=== PATIENT | male | born 1950 | race Caucasian/White ===

== ENCOUNTER → 2017-09-01 15:50 | Outpatient (CLI) | payer MEDICARE, SELFPAY ==
[2017-09-01 17:30] LABS: Absolute Lymphocyte Count 2.11 X10^3/ul (0.83-4.51); Absolute Neutrophil Count 7.4 X10^3/uL (2.0-7.7); Basophil# 0.02 X10^3/uL; Basophil% 0.2 % (0-1); Eosinophil# 0.08 X10^3/uL; Eosinophils% 0.8 % (0-5); Hemoglobin 14.8 g/dl (13.0-16.5); Lymphocyte # 2.11 X10^3/ul (4.0); Lymphocyte % 20.2 % (19-41); Mean Corp Hgb Conc 33.6 g/gl (32-36); Mean Corpuscular Hgb 30.8 pg (27.0-32.0); Mean Corpuscular Volume 91.7 fL (80-94); Mean Platelet Vol. 10.3 fl (6.2-12.0); Monocyte# 0.88 X10^3/uL; Monocyte% 8.4 % (0-10); Neutrophil # 7.36 X10^3/uL (2.7-7.7); Neutrophil % 70.2 % (47-70); Platelet Count 277 K/mm3 (150-450); RBC Distribution Width CV 14.8 % (11.6-14.6); RBC Distribution Width SD 48.5 fl (35.1-43.9); White Blood Count 10.5 K/mm3 (4.4-11.0)
[2017-09-01 17:44] LABS: POSITIVE COUNT NO; POSITIVE DIFFERENTIAL NO; POSITIVE MORPHOLOGY NO
[2017-09-01 17:47] LABS: ALB/GLOB Ratio 1.2 RATIO (0.9-2.4); AST(SGOT) 18 U/L (15-37); Alanine Aminotransfer ALT/SGPT 26 U/L (16-61); Albumin, Serum 3.8 g/dL (3.2-5.0); Alkaline Phosphatase 68 U/L (45-117); Anion Gap 8 (5-15); BUN 14 mg/dL (7-18); Calcium,Total 8.9 mg/dL (8.5-10.1); Chloride 105 mmol/L (98-107); EST Glomerular Filtration Rate 80 mL/min (>60); Est Glom Filt Rate - Afr Amer 97 mL/min (>60); Globulin 3.3 g/dL (2.2-4.2); Glucose 80 mg/dL (74-106); Potassium 4.6 mmol/L (3.5-5.1); Protein, Total 7.1 g/dL (6.4-8.2); Sodium Level 140 mmol/L (136-145); Thyroid Stim Hormone (TSH) 1.69 uIU/mL (0.358-3.74); Vitamin D,25 Hydroxy 22.7 ng/mL (29.95-100.01)
== END ==
PROVIDERS: Family Provider Family Medicine Geriatric Medicine; PCP Family Medicine Geriatric Medicine; Visit Provider Family Medicine Geriatric Medicine
DX: E55.9 Vitamin D deficiency, unspecified (principal); R53.83 Other fatigue
CPT/HCPCS: 36415; 80053; 82306; 84443; 85025

== ENCOUNTER → 2018-03-09 16:36 | Outpatient (CLI) | payer MEDICARE, SELFPAY ==
[2018-03-09 17:41] LABS: Absolute Lymphocyte Count 1.77 X10^3/ul (0.83-4.51); Absolute Neutrophil Count 5.1 X10^3/uL (2.0-7.7); Basophil# 0.02 X10^3/uL; Basophil% 0.3 % (0-1); Eosinophil# 0.13 X10^3/uL; Eosinophils% 1.7 % (0-5); Hematocrit 44.7 % (40-54); Lymphocyte # 1.77 X10^3/ul (4.0); Lymphocyte % 22.7 % (19-41); Mean Corp Hgb Conc 33.6 g/gl (32-36); Mean Corpuscular Hgb 30.5 pg (27.0-32.0); Mean Corpuscular Volume 90.9 fL (80-94); Mean Platelet Vol. 10.9 fl (6.2-12.0); Monocyte# 0.71 X10^3/uL; Monocyte% 9.1 % (0-10); Neutrophil # 5.14 X10^3/uL (2.7-7.7); Neutrophil % 65.9 % (47-70); Platelet Count 248 K/mm3 (150-450); RBC Distribution Width CV 14.6 % (11.6-14.6); RBC Distribution Width SD 47.7 fl (35.1-43.9); Red Blood Count 4.92 M/mm3 (4.6-6.2); White Blood Count 7.8 K/mm3 (4.4-11.0)
[2018-03-09 17:42] LABS: POSITIVE COUNT NO; POSITIVE DIFFERENTIAL NO; POSITIVE MORPHOLOGY NO
[2018-03-09 18:13] LABS: Vitamin D,25 Hydroxy 20.2 ng/mL (29.95-100.01)
[2018-03-09 18:25] LABS: BUN 9 mg/dL (7-18); Creatinine, Serum 0.91 mg/dL (0.70-1.30); EST Glomerular Filtration Rate 89 mL/min (>60); Glucose 77 mg/dL (74-106)
[2018-03-09 18:26] LABS: ALB/GLOB Ratio 1.2 RATIO (0.9-2.4); AST(SGOT) 9 U/L (15-37); Alanine Aminotransfer ALT/SGPT 21 U/L (16-61); Albumin, Serum 3.9 g/dL (3.2-5.0); Alkaline Phosphatase 74 U/L (45-117); Anion Gap 9 (5-15); BUN/Creat Ratio 9.9 RATIO (10-20); Chloride 105 mmol/L (98-107); Est Glom Filt Rate - Afr Amer 107 mL/min (>60); Globulin 3.3 g/dL (2.2-4.2); PSA,Total - Annual Screen 5.99 ng/mL (0.00-4.00); Protein, Total 7.2 g/dL (6.4-8.2); Sodium Level 142 mmol/L (136-145); Thyroid Stim Hormone (TSH) 1.82 uIU/mL (0.358-3.74)
[2018-03-11 14:15] LABS: Hep C Antibodies <0.1 s/co ratio (0.0-0.9)
== END ==
PROVIDERS: Family Provider Family Medicine Geriatric Medicine; PCP Family Medicine Geriatric Medicine; Visit Provider Family Medicine Geriatric Medicine
DX: E55.9 Vitamin D deficiency, unspecified (principal); R53.83 Other fatigue; Z12.5 Encounter for screening for malignant neoplasm of prostate; Z13.89 Encounter for screening for other disorder
CPT/HCPCS: 36415; 80053; 82306; 84153; 84443; 85025; 86803; G0103

== ENCOUNTER → 2018-05-11 08:00 | Outpatient (CLI) | payer MEDICARE, SELFPAY ==
--- NOTE | 2018-05-11 | IMM_PTH ---
PATIENT: SAVANNAH CROOKS LOC: [facility] U#:[id number] AGE/SX: 75/M ROOM: RE05/11/[address]: Dr. Los Santos MD : 1950 BED: DIS: SPEC #: [id number] RECD: 05/12/18 11:27 STATUS: JC REZach #: [id number] SAL: 05/11/18 00:[address]: Los Santos DEPT: IMMUNOHISTOCHEMISTRY RECD BY: Varsha Read ENTERED: 05/12/18 11:29 SP TYPE: IMMUNO OTHR DR: Dr. Luiz Celeste MD Tissues: C - PROSTATE RIGHT F - PROSTATE LEFT Procedures: 34BE12 (add) P40 (add) 34BE12 (initial) PHYSICIAN & INSTITUTION [place] [id number] SPECIMEN INFORMATION: Tissue Source: C - Right prostate, base, core biopsy, F - Left prostate, base, core biopsy Clinical Info: Elevated PSA Specimen Number: [id number] C & F CPT code: 23135, 78051 x3 METHODOLOGY: Deparaffinized sections of prefer/formalin-fixed tissue or PAP/DQ stained slides are incubated with monoclonal/polyclonal antibodies/oligonucleotide probes. Localization is made via biotin free immunoperoxidase method. Appropriate controls are performed and reacted as expected. Results on target cell population are indicated in the following table: RESULTS: ANTIBODY / CLONE RESULT Block C P40 (BC28) positive 34BE12 (34BE12) positive Block F P40 (BC28) positive 34BE12 (34BE12) positive These tests were developed and their performance characteristics determined by [facility]. They may not have been cleared or approved by the U.S. Food and Drug Administration. The FDA has determined that such clearance or approval is not necessary. INTERPRETATION: C. Right prostate, base, core biopsy: Consistent with focal high-grade prostatic intraepithelial neoplasia (HGPIN). F. Left prostate, base, core biopsy: Consistent with focal high-grade prostatic intraepithelial neoplasia (HGPIN). SJ:chong 05/12/18
--- NOTE | 2018-05-11 08:00 | PROSBIL_PTH ---
PATIENT: SAVANNAH CROOKS LOC: [facility] U#:[id number] AGE/SX: 75/M ROOM: RE05/11/[address]: Dr. Los Santos MD : 1950 BED: DIS: SPEC #: [id number] RECD: 05/11/18 14:10 STATUS: JC ADRIEL #: [id number] SAL: 05/11/18 08:[address]: Los Santos DEPT: SURGICAL PATHOLOGY RECD BY: Varsha Read ENTERED: 05/11/18 14:25 SP TYPE: PROST BX MAXI DR: Dr. Luiz Celeste MD Tissues: A - PROSTATE RIGHT B - PROSTATE RIGHT C - PROSTATE RIGHT D - PROSTATE LEFT E - PROSTATE LEFT F - PROSTATE LEFT Procedures: PROSTATE BX HEADER OPERATION: Prostate biopsy PRE-OP DIAGNOSIS: Elevated PSA TISSUE SUBMITTED: A - Right apex, B - Right mid, C - Right base, D - Left apex, E - Left mid, F - Left base MICROSCOPIC DIAGNOSIS A. Right prostate, apex, core biopsy: Prostatic tissue, negative for malignancy. B. Right prostate, mid, core biopsy: Prostatic tissue, negative for malignancy. Focal mild chronic inflammation. C. Right prostate, base, core biopsy: Focal high-grade prostatic intraepithelial neoplasia (HGPIN). Focal mild chronic inflammation. See comment. D. Left prostate, apex, core biopsy: Prostatic tissue, negative for malignancy. E. Left prostate, mid, core biopsy: Prostatic tissue, negative for malignancy. F. Left prostate, base, core biopsy: Focal high-grade prostatic intraepithelial neoplasia (HGPIN). Focal mild chronic inflammation. See comment. SJ:rg 05/12/18 COMMENT C & F. Immunohistochemistry ([id number]) supports the above diagnosis. Case has been reviewed in consultation with Dr. Rojas who concurs with the above diagnosis. IDC:AM MICROSCOPIC DESCRIPTION Slides are reviewed. GROSS DESCRIPTION A - Received is one container designated prostate, right apex. The specimen consists of three elongated fragments of light hernandez-white soft tissue each measuring 0.5 cm in length and 0.1 cm in diameter. The specimen is totally submitted in one cassette. B - Received is one container designated prostate, right mid. The specimen consists of two elongated fragments of light hernandez-white soft tissue each measuring 1.5 cm in length and 0.1 cm in diameter. The specimen is totally submitted in one cassette. C - Received is one container designated prostate, right base. The specimen consists of two elongated fragments of light heranndez-white soft tissue measuring 1 and 1.5 cm in length and 0.1 cm in diameter. The specimen is totally submitted in one cassette. D - Received is one container designated prostate, left apex. The specimen consists of two elongated fragments of light hernandez-white soft tissue each measuring 1.5 cm in length and 0.1 cm in diameter. The specimen is totally submitted in one cassette. E - Received is one container designated prostate, left mid. The specimen consists of three elongated fragments of light hernandez-white soft tissue measuring 0.5, 0.5 and 1 cm in length and 0.1 cm in diameter. The specimen is totally submitted in one cassette. F - Received is one container designated prostate, left base. The specimen consists of two elongated fragments of light hernandez-white soft tissue measuring 1 and 1.5 cm in length and 0.1 cm in diameter. The specimen is totally submitted in one cassette. / SJ:rg 05/11/18 TC:5 CPT: G0146
== END ==
PROVIDERS: Family Provider Family Medicine Geriatric Medicine; PCP Family Medicine Geriatric Medicine; Referring Provider Urology; Visit Provider Urology
DX: N42.31 Prostatic intraepithelial neoplasia (principal)
CPT/HCPCS: 88305; 88341; 88342; G0416

== ENCOUNTER → 2018-06-29 15:27 | Outpatient (CLI) | payer MEDICARE, SELFPAY ==
--- NOTE | 2018-06-29 15:32 | MRI_ITS ---
STUDY: MR PELVIS WITH T WITHOUT CONTRAST REASON FOR EXAM: Male, 68 years old. Recent biopsy proven prostate cancer. TECHNIQUE: Standardized fat and water weighted pulse sequences were obtained in all 3 orthogonal planes, pre-and post contrast administration. 10 ml of Gadavist contrast material was administered intravenously for the contrast portion of the examination. COMPARISON: Prior comparable comparison studies are not available for review at this time. FINDINGS: There is invasion of the urinary bladder base by a lobular enlarged prostate. The urinary bladder otherwise has a grossly normal appearance. There is no obvious dilated bowel, or ascites. There are multiple colonic diverticula of the sigmoid colon consistent with chronic diverticulosis. There is no pelvic fluid. The prostate is enlarged and lobular contour. There is restricted diffusion within the left paramedian caudal prostate presumably related to the known malignancy. This is best seen on axial images #15-21 of series #8 and #800. The prostate has a lobular contour. Estimated size of the prostate is approximately 8.3 x 4.7 x 4.5 cm in size. The seminal vesicles are within normal limits in appearance. Normal visualized pelvic arteries. Normal osseous structures. Normal abdominal wall. MRI/Pelvis W/WO Contrast IMPRESSION: 1. MR findings confirming the presence of a prostatic neoplasm, as described. 2. Apparent encroachment upon the urinary bladder base. 3. General enlargement of the prostate with multiple nodules. Electronically Signed: Aracely Ya MD at 11:55 EST , Service support ,
[2018-06-29 15:56] LABS: CREATININE FINGERSTICK 1.1 mg/dL (0.70-1.30); EGFR FINGERSTICK > 60.0000 mL/min (>60)
== END ==
PROVIDERS: Family Provider Family Medicine Geriatric Medicine; PCP Family Medicine Geriatric Medicine; Referring Provider Urology; Visit Provider Urology
DX: R97.20 Elevated prostate specific antigen [PSA] (principal)
CPT/HCPCS: 72197; A9585

== ENCOUNTER → 2018-07-28 16:38 | Outpatient (CLI) | payer MEDICARE, SELFPAY ==
--- NOTE | 2018-07-28 08:00 | PROSBIL_PTH ---
PATIENT: SAVANNAH CROOKS LOC: [facility] U#:[id number] AGE/SX: 75/M ROOM: RE07/28/[address]: Dr. Los Snatos MD : 1950 BED: DIS: SPEC #: [id number] RECD: 07/28/18 16:31 STATUS: JC ADRIEL #: [id number] SAL: 07/28/18 08:[address]: Los Santos DEPT: SURGICAL PATHOLOGY RECD BY: Honorio Weir ENTERED: 07/29/18 08:14 SP TYPE: PROST BX MAXI DR: Dr. Luiz Celeste MD Tissues: A - PROSTATE RIGHT B - PROSTATE RIGHT C - PROSTATE RIGHT D - PROSTATE LEFT E - PROSTATE LEFT F - PROSTATE LEFT Procedures: PROSTATE BX HEADER OPERATION: Prostate biopsy PRE-OP DIAGNOSIS: Elevated PSA TISSUE SUBMITTED: A - Right apex, B - Right mid, C - Right base, D - Left apex, E - Left mid, F - Left base MICROSCOPIC DIAGNOSIS A. Right prostate, apex, core biopsy: Prostatic tissue, negative for malignancy. B. Right prostate, mid, core biopsy: Prostatic tissue, negative for malignancy. C. Right prostate, base, core biopsy: Focal minimal high-grade prostatic intraepithelial neoplasia (HGPIN). D. Left prostate, apex, core biopsy: Prostatic tissue, negative for malignancy. E. Left prostate, mid, core biopsy: Prostatic tissue, negative for malignancy. F. Left prostate, base, core biopsy: Prostatic tissue, negative for malignancy. SJ:chong 07/30/18 COMMENT Please make reference to previous specimen ([id number]) right prostate, apex, right prostate, mid and left prostate, apex and left prostate, mid with diagnosis of prostatic tissue, negative for malignancy and right prostate, base and left prostate, base with diagnosis of focal high-grade prostatic intraepithelial neoplasia (HGPIN). MICROSCOPIC DESCRIPTION Slides are reviewed. GROSS DESCRIPTION A - Received is one container designated prostate, right apex. The specimen consists of two elongated fragments of light hernandez-white soft tissue each measuring 2 cm in length and 0.1 cm in diameter. The specimen is totally submitted in one cassette. B - Received is one container designated prostate, right mid. The specimen consists of two elongated fragments of light hernandez-white soft tissue each measuring 2 cm in length and 0.1 cm in diameter. The specimen is totally submitted in one cassette. C - Received is one container designated prostate, right base. The specimen consists of two elongated fragments of light hernandez-white soft tissue each measuring 1.5 cm in length and 0.1 cm in diameter. The specimen is totally submitted in one cassette. D - Received is one container designated prostate, left apex. The specimen consists of two elongated fragments of light hernandez-white soft tissue each measuring 1.5 cm in length and 0.1 cm in diameter. The specimen is totally submitted in one cassette. E - Received is one container designated prostate, left mid. The specimen consists of two elongated fragments of light hernandez-white soft tissue each measuring 1 cm in length and 0.1 cm in diameter. The specimen is totally submitted in one cassette. F - Received is one container designated prostate, left base. The specimen consists of two elongated fragments of light hernandez-white soft tissue each measuring 1 cm in length and 0.1 cm in diameter. The specimen is totally submitted in one cassette. / AM:chong 07/29/18 TC:5 CPT: G0146
== END ==
PROVIDERS: Family Provider Family Medicine Geriatric Medicine; PCP Family Medicine Geriatric Medicine; Referring Provider Urology; Visit Provider Urology
DX: N42.31 Prostatic intraepithelial neoplasia (principal)
CPT/HCPCS: 88305; G0416

== ENCOUNTER → 2019-05-11 16:24 | Outpatient (CLI) | payer MEDICARE, SELFPAY ==
[2019-05-11 18:09] LABS: PSA,Total- Diagnostic 5.94 ng/mL (0.0-4.0)
== END ==
PROVIDERS: Family Provider Family Medicine Geriatric Medicine; PCP Family Medicine Geriatric Medicine; Referring Provider Urology; Visit Provider Urology
DX: R97.20 Elevated prostate specific antigen [PSA] (principal)
CPT/HCPCS: 36415; 84153

== ENCOUNTER → 2020-09-19 14:36 | Outpatient (CLI) | payer MEDICARE, SELFPAY ==
[2020-09-19 15:05] LABS: Absolute Lymphocyte Count 1.94 X10^3/uL (0.83-4.51); Absolute Neutrophil Count 5.5 X10^3/uL (2.0-7.7); Basophil# 0.03 X10^3/uL; Basophil% 0.4 % (0-1); Eosinophil# 0.06 X10^3/uL; Eosinophils% 0.7 % (0-5); Hematocrit 45.4 % (40-54); Hemoglobin 14.9 g/dL (13.0-16.5); Lymphocyte # 1.94 X10^3/ul (4.0); Lymphocyte % 23.6 % (19-41); Mean Corp Hgb Conc 32.8 g/dL (32-36); Mean Corpuscular Hgb 29.7 pg (27.0-32.0); Mean Corpuscular Volume 90.6 fL (80-94); Mean Platelet Vol. 9.9 fl (6.2-12.0); Monocyte% 8.5 % (0-10); NRBC Flagged by Analyzer 0 % (0-5); Neutrophil # 5.47 X10^3/uL (2.7-7.7); Neutrophil % 66.6 % (47-70); Platelet Count 270 K/mm3 (150-450); RBC Distribution Width SD 46.7 fl (35.1-43.9); Red Blood Count 5.01 M/mm3 (4.6-6.2); White Blood Count 8.2 K/mm3 (4.4-11.0)
[2020-09-19 15:21] LABS: Vitamin D,25 Hydroxy 26.2 ng/mL
[2020-09-19 15:24] LABS: ALB/GLOB Ratio 1.2 RATIO (0.9-2.4); AST(SGOT) 13 U/L (15-37); Alanine Aminotransfer ALT/SGPT 21 U/L (16-61); Albumin, Serum 3.9 g/dL (3.2-5.0); Alkaline Phosphatase 71 U/L (45-117); Anion Gap 5 (5-15); BUN 12 mg/dL (7-18); BUN/Creat Ratio 13.1 RATIO (10-20); Calcium,Total 9.1 mg/dL (8.5-10.1); Chloride 106 mmol/L (98-107); Creatinine, Serum 0.92 mg/dL (0.70-1.30); EST Glomerular Filtration Rate 87 mL/min (>60); Est Glom Filt Rate - Afr Amer 105 mL/min (>60); Globulin 3.2 g/dL (2.2-4.2); Glucose 80 mg/dL (74-106); PSA,Total - Annual Screen 8.38 ng/mL (0.00-4.00); Potassium 4.2 mmol/L (3.5-5.1); Protein, Total 7.1 g/dL (6.4-8.2); Sodium Level 139 mmol/L (136-145); Thyroid Stim Hormone (TSH) 1.67 uIU/mL (0.358-3.74)
== END ==
PROVIDERS: PCP Family Medicine Geriatric Medicine; Visit Provider Family Medicine Geriatric Medicine
DX: E55.9 Vitamin D deficiency, unspecified (principal); R53.83 Other fatigue; Z12.5 Encounter for screening for malignant neoplasm of prostate
CPT/HCPCS: 36415; 80053; 82306; 84153; 84443; 85025; G0103

== ENCOUNTER → 2020-09-29 07:52 | Outpatient (CLI) | payer MEDICARE, SELFPAY ==
--- NOTE | 2020-09-29 08:03 | CT_ITS ---
STUDY: CT CHEST WITHOUT CONTRAST REASON FOR EXAM: Male, 70 years old. SOLITARY PULMONARY NODULE RADIATION DOSAGE (If Supplied By Facility): CTDIvol = ( 14.89 ) mGy, DLP = ( 599.22 ) mGycm TECHNIQUE: Transaxial imaging was performed without the administration of intravenous contrast material. Multiplanar coronal and sagittal images were reformatted. Individualized dose optimization techniques were used for this CT. COMPARISON: Comparison is made with prior study dated 06/18/2017. FINDINGS: Small benign-appearing bilateral axillary lymph nodes. Stable calcified granuloma in the medial aspect of the right upper lobe medially. There is no demonstrated pleural abnormality. There are calcifications of the coronary arteries. Normal mediastinum. Normal hilar regions. Normal unenhanced pulmonary arteries. Normal aorta arch and descending thoracic aorta. There are multi-level degenerative changes of the thoracic spine. There is no demonstrated abnormality of the visualized upper abdomen. CT/Chest without Contrast IMPRESSION: Stable examination. Electronically Signed: Ebenezer Tran MD at 10:02 EDT , Service support ,
== END ==
PROVIDERS: PCP Family Medicine Geriatric Medicine; Referring Provider Family Medicine Geriatric Medicine; Visit Provider Family Medicine Geriatric Medicine
DX: R91.1 Solitary pulmonary nodule (principal)
CPT/HCPCS: 71250

== ENCOUNTER → 2021-03-20 13:58 | Outpatient (CLI) | payer MEDICARE, SELFPAY ==
[2021-03-20 15:40] LABS: Absolute Lymphocyte Count 1.88 X10^3/uL (0.83-4.51); Absolute Neutrophil Count 4.9 X10^3/uL (2.0-7.7); Basophil# 0.04 X10^3/uL; Basophil% 0.5 % (0-1); Eosinophil# 0.17 X10^3/uL; Eosinophils% 2.2 % (0-5); Hematocrit 42.5 % (40-54); Hemoglobin 14.3 g/dL (13.0-16.5); Lymphocyte # 1.88 X10^3/ul (0.83-4.51); Lymphocyte % 24.8 % (19-41); Mean Corp Hgb Conc 33.6 g/dL (32-36); Mean Corpuscular Hgb 30.3 pg (27.0-32.0); Mean Platelet Vol. 9.8 fl (6.2-12.0); Monocyte% 7.9 % (0-10); NRBC Flagged by Analyzer 0 % (0-5); Neutrophil # 4.87 X10^3/uL (2.7-7.7); Neutrophil % 64.2 % (47-70); Platelet Count 258 K/mm3 (150-450); RBC Distribution Width CV 13.8 % (11.6-14.6); Red Blood Count 4.72 M/mm3 (4.6-6.2); White Blood Count 7.6 K/mm3 (4.4-11.0)
[2021-03-20 15:56] LABS: Vitamin D,25 Hydroxy 32.4 ng/mL
[2021-03-20 16:10] LABS: ALB/GLOB Ratio 1.2 RATIO (0.9-2.4); AST(SGOT) 14 U/L (15-37); Alanine Aminotransfer ALT/SGPT 20 U/L (16-61); Albumin, Serum 3.7 g/dL (3.2-5.0); Alkaline Phosphatase 70 U/L (45-117); Anion Gap 7 (5-15); BUN 10 mg/dL (7-18); BUN/Creat Ratio 10.1 RATIO (10-20); Chloride 107 mmol/L (98-107); Creatinine, Serum 0.99 mg/dL (0.70-1.30); EST Glomerular Filtration Rate 80 mL/min (>60); Est Glom Filt Rate - Afr Amer 97 mL/min (>60); Globulin 3.2 g/dL (2.2-4.2); Glucose 87 mg/dL (74-106); Protein, Total 6.9 g/dL (6.4-8.2); Sodium Level 140 mmol/L (136-145); Thyroid Stim Hormone (TSH) 1.49 uIU/mL (0.358-3.74)
== END ==
PROVIDERS: PCP Family Medicine Geriatric Medicine; Visit Provider Family Medicine Geriatric Medicine
DX: E55.9 Vitamin D deficiency, unspecified (principal); R53.83 Other fatigue
CPT/HCPCS: 36415; 80053; 82306; 84443; 85025

== ENCOUNTER 2021-09-24 15:24 | Outpatient (CLI) | payer MEDICARE, SELFPAY ==
[2021-09-24 17:08] LABS: Absolute Lymphocyte Count 1.78 X10^3/uL (0.83-4.51); Absolute Neutrophil Count 6.6 X10^3/uL (2.0-7.7); Basophil# 0.05 X10^3/uL; Basophil% 0.5 % (0-1); Eosinophil# 0.18 X10^3/uL; Eosinophils% 1.9 % (0-5); Hematocrit 42.2 % (40-54); Hemoglobin 13.9 g/dL (13.0-16.5); Lymphocyte # 1.78 X10^3/ul (0.83-4.51); Mean Corp Hgb Conc 32.9 g/dL (32-36); Mean Corpuscular Hgb 29.9 pg (27.0-32.0); Mean Corpuscular Volume 90.8 fL (80-94); Mean Platelet Vol. 10.2 fl (6.2-12.0); Monocyte% 8.5 % (0-10); NRBC Flagged by Analyzer 0 % (0-5); Neutrophil # 6.55 X10^3/uL (2.7-7.7); Neutrophil % 69.8 % (47-70); Platelet Count 278 K/mm3 (150-450); RBC Distribution Width SD 46.7 fl (35.1-43.9); Red Blood Count 4.65 M/mm3 (4.6-6.2); White Blood Count 9.4 K/mm3 (4.4-11.0)
[2021-09-24 17:22] LABS: Vitamin D,25 Hydroxy 29.2 ng/mL
[2021-09-24 17:34] LABS: ALB/GLOB Ratio 1.3 RATIO (0.9-2.4); AST(SGOT) 14 U/L (15-37); Alanine Aminotransfer ALT/SGPT 25 U/L (16-61); Albumin, Serum 3.8 g/dL (3.2-5.0); Alkaline Phosphatase 63 U/L (45-117); Anion Gap 5 (5-15); BUN 9 mg/dL (7-18); BUN/Creat Ratio 9.2 RATIO (10-20); Calcium,Total 8.7 mg/dL (8.5-10.1); Chloride 107 mmol/L (98-107); Creatinine, Serum 0.98 mg/dL (0.70-1.30); EST Glomerular Filtration Rate 81 mL/min (>60); Est Glom Filt Rate - Afr Amer 98 mL/min (>60); Globulin 2.9 g/dL (2.2-4.2); Glucose 75 mg/dL (74-106); PSA,Total - Annual Screen 7.31 ng/mL (0.00-4.00); Potassium 3.9 mmol/L (3.5-5.1); Protein, Total 6.7 g/dL (6.4-8.2); Sodium Level 140 mmol/L (136-145); Thyroid Stim Hormone (TSH) 2.41 uIU/mL (0.358-3.74)
== END 2021-09-24 23:59 | disposition home or self-care (01) ==
LOC: POLAB3 15:27
PROVIDERS: PCP Family Medicine Geriatric Medicine; Visit Provider Family Medicine Geriatric Medicine
DX: R53.83 Other fatigue (principal); E55.9 Vitamin D deficiency, unspecified; Z12.5 Encounter for screening for malignant neoplasm of prostate
CPT/HCPCS: 36415; 80053; 82306; 84153; 84443; 85025; G0103

== ENCOUNTER → 2022-03-26 | Outpatient (CLI) | payer MEDICARE, SELFPAY ==
[2022-03-26 16:59] LABS: Absolute Lymphocyte Count 1.61 X10^3/uL (0.83-4.51); Absolute Neutrophil Count 8.1 X10^3/uL (2.0-7.7); Basophil# 0.03 X10^3/uL; Basophil% 0.3 % (0-1); Eosinophil# 0.06 X10^3/uL; Eosinophils% 0.5 % (0-5); Hematocrit 42.9 % (40-54); Hemoglobin 14.4 g/dL (13.0-16.5); Lymphocyte # 1.61 X10^3/ul (0.83-4.51); Lymphocyte % 14.7 % (19-41); Mean Corp Hgb Conc 33.6 g/dL (32-36); Mean Corpuscular Hgb 30.3 pg (27.0-32.0); Mean Corpuscular Volume 90.3 fL (80-94); Mean Platelet Vol. 10.8 fl (6.2-12.0); Monocyte# 1.09 X10^3/uL; NRBC Flagged by Analyzer 0 % (0-5); Neutrophil % 74.1 % (47-70); Platelet Count 232 K/mm3 (150-450); RBC Distribution Width CV 14.1 % (11.6-14.6); RBC Distribution Width SD 46.7 fl (35.1-43.9); Red Blood Count 4.75 M/mm3 (4.6-6.2); White Blood Count 10.9 K/mm3 (4.4-11.0)
[2022-03-26 17:28] LABS: Vitamin D,25 Hydroxy 34.6 ng/mL
[2022-03-26 17:33] LABS: ALB/GLOB Ratio 1.1 RATIO (0.9-2.4); AST(SGOT) 12 U/L (15-37); Alanine Aminotransfer ALT/SGPT 26 U/L (16-61); Albumin, Serum 3.6 g/dL (3.2-5.0); Alkaline Phosphatase 89 U/L (45-117); Anion Gap 3 (5-15); BUN 11 mg/dL (7-18); BUN/Creat Ratio 11.6 RATIO (10-20); Chloride 107 mmol/L (98-107); Creatinine, Serum 0.95 mg/dL (0.70-1.30); EST Glomerular Filtration Rate 83 mL/min (>60); Est Glom Filt Rate - Afr Amer 101 mL/min (>60); Globulin 3.4 g/dL (2.2-4.2); Glucose 85 mg/dL (74-106); Potassium 4.2 mmol/L (3.5-5.1); Sodium Level 138 mmol/L (136-145); Thyroid Stim Hormone (TSH) 1.48 uIU/mL (0.358-3.74)
== END | disposition home or self-care (01) ==
LOC: POLAB3 09:05
PROVIDERS: PCP Family Medicine Geriatric Medicine; Visit Provider Family Medicine Geriatric Medicine
DX: E55.9 Vitamin D deficiency, unspecified (principal); R53.83 Other fatigue
CPT/HCPCS: 36415; 80053; 82306; 84443; 85025

== ENCOUNTER → 2022-10-01 | Outpatient (CLI) | payer MEDICARE, SELFPAY ==
[2022-10-01 17:35] LABS: Absolute Lymphocyte Count 1.56 X10^3/uL (0.83-4.51); Absolute Neutrophil Count 5.5 X10^3/uL (2.0-7.7); Basophil# 0.03 X10^3/uL; Basophil% 0.4 % (0-1); Eosinophil# 0.07 X10^3/uL; Eosinophils% 0.9 % (0-5); Hematocrit 43.8 % (40-54); Hemoglobin 14.8 g/dL (13.0-16.5); Lymphocyte # 1.56 X10^3/ul (0.83-4.51); Lymphocyte % 20.2 % (19-41); Mean Corp Hgb Conc 33.8 g/dL (32-36); Mean Corpuscular Hgb 30.5 pg (27.0-32.0); Mean Corpuscular Volume 90.3 fL (80-94); Mean Platelet Vol. 10.6 fl (6.2-12.0); Monocyte# 0.59 X10^3/uL; Monocyte% 7.6 % (0-10); NRBC Flagged by Analyzer 0 % (0-5); Neutrophil # 5.47 X10^3/uL (2.7-7.7); Neutrophil % 70.6 % (47-70); Platelet Count 221 K/mm3 (150-450); RBC Distribution Width CV 13.8 % (11.6-14.6); RBC Distribution Width SD 46.1 fl (35.1-43.9); Red Blood Count 4.85 M/mm3 (4.6-6.2); White Blood Count 7.7 K/mm3 (4.4-11.0)
[2022-10-01 17:52] LABS: Vitamin D,25 Hydroxy 40.1 ng/mL
[2022-10-01 18:04] LABS: ALB/GLOB Ratio 1.3 RATIO (0.9-2.4); AST(SGOT) 15 U/L (15-37); Alanine Aminotransfer ALT/SGPT 22 U/L (16-61); Albumin, Serum 3.9 g/dL (3.2-5.0); Alkaline Phosphatase 73 U/L (45-117); Anion Gap 5 (5-15); BUN 10 mg/dL (7-18); Chloride 108 mmol/L (98-107); Creatinine, Serum 0.91 mg/dL (0.70-1.30); EST Glomerular Filtration Rate 88 mL/min (>60); Est Glom Filt Rate - Afr Amer 106 mL/min (>60); Globulin 3.1 g/dL (2.2-4.2); Glucose 79 mg/dL (74-106); Potassium 3.9 mmol/L (3.5-5.1); Sodium Level 139 mmol/L (136-145); Thyroid Stim Hormone (TSH) 2.14 uIU/mL (0.358-3.74)
== END | disposition home or self-care (01) ==
LOC: POLAB3 11:13
PROVIDERS: PCP Family Medicine Geriatric Medicine; Visit Provider Family Medicine Geriatric Medicine
DX: E55.9 Vitamin D deficiency, unspecified (principal); R53.83 Other fatigue; Z12.5 Encounter for screening for malignant neoplasm of prostate
CPT/HCPCS: 36415; 80053; 82306; 84153; 84443; 85025; G0103

== ENCOUNTER → 2022-11-08 | Outpatient (CLI) | payer MEDICARE, SELFPAY ==
--- NOTE | 2022-11-08 12:40 | MRI_ITS ---
ACR Level 3 findings have been noted. An addendum which confirms receipt of the report will follow. STUDY: MR PELVIS WITH AND WITHOUT CONTRAST (PROSTATE) REASON FOR EXAM: Male, 72 years old. Elevated PSA TECHNIQUE: Standardized multiparametric prostate MRI with T1, T2, DWI/ADC sequences were obtained in 3 orthogonal planes, and dynamic contrast enhancement sequences. 19 ml of Clariscan contrast material was administered intravenously for the contrast portion of the examination. COMPARISON: 06/29/2018 FINDINGS: The prostate volume measures 121.3 mm3. The contours of the prostate gland are lobulated. There is mass effect on the bladder base. The transition zone is heterogenous. PI-RADS DWI score 3 - Focal mildly hypointense on ADC and isointense/mildly hyperintense on high b-value DWI. PI-RADS T2W score 2 - A mostly encapsulated nodule OR a homogeneous circumscribed nodule without encapsulation (atypical nodule) or a homogeneous mildly hypointense area between nodules.. Contrast enhancement no early or contemporaneous enhancement; or diffuse multifocal enhancement NOT corresponding to a focal finding on T2W and/or DWI or focal ehancement responding to a lesion demonstrating features of BPH onT2WI (including features of extruded BPH in the PZ). The peripheral zone is homogenous. PI-RADS DWI score 2 - Linear/wedge shaped hypointense on ADC and/or linear/wedge shaped hyperintense on high b-value DWI. PI-RADS T2W score 2 - Linear, wedge-shaped, or diffuse mild hypointensity, usually with indistinct margin. Contrast enhancement no early or contemporaneous enhancement; or diffuse multifocal enhancement NOT corresponding to a focal finding on T2W and/or DWI or focal enhancement responding to a lesion demonstrating features of BPH onT2WI (including features of extruded BPH in the PZ). The seminal vesicles demonstrate normal margins and T2 signal pattern. No mass lesion or invasion depicted. The rectoprostatic angles are normal. Rounded, irregular mass (new) of the left side of the urinary bladder is seen just above the left UVJ on image 8 of series 8 and measures 1.7 x 1.9 cm. There is moderate enhancement following IV contrast. The vascular structures of the are normal. The visualized hollow viscus structures are normal. No bone marrow edema or mass lesion depicted. MRI/Pelvis W/WO Contrast IMPRESSION: 1. New solid, enhancing mass of the urinary bladder (near the left UVJ), very worrisome for uroepithelial neoplasm. 2. PIRADS v2.1 2019 -- 2 - Low (clinically significant cancer is unlikely). 3. Prostatomegaly with mass effect on bladder base. Electronically Signed: Trace Murphy (Brooks), at 17:57 EDT ,
[2022-11-08 13:13] LABS: CREATININE FINGERSTICK < 0.9 mg/dL (0.70-1.30); EGFR FINGERSTICK > 60.0000 mL/min (>60)
== END | disposition home or self-care (01) ==
LOC: MRI 12:25
PROVIDERS: PCP Family Medicine Geriatric Medicine; Referring Provider Urology; Visit Provider Urology
DX: R97.20 Elevated prostate specific antigen [PSA] (principal)
CPT/HCPCS: 72197; A9575

== ENCOUNTER 2022-12-11 15:29 | Observation (INO) | payer MEDICARE, SELFPAY ==
[2022-12-11] VITALS (10 sets, daily range): BP systolic 122–131; BP diastolic 64–95; PULSE 58–86; RESP 16–18; TEMP 36.1–36.6; O2SAT 96–100; BMI 29.4
--- NOTE | 2022-12-11 12:18 | EKG12_ITS ---
Test Reason : PREOP Blood Pressure : / mmHG Vent. Rate : 051 BPM Atrial Rate : 051 BPM P-R Int : 166 ms QRS Dur : 106 ms QT Int : 430 ms P-R-T Axes : 061 044 043 degrees QTc Int : 396 ms Sinus bradycardia Otherwise normal ECG No previous ECGs available Confirmed by ADRIAN REYNA, ELLIOTT ([id number]), commissioning editor ARLEN DONOHUE ([id number]) on 12/13/2022 9:28:20 AM Referred By: Los Santos Confirmed By:ELLIOTT CAMPBELL MD
[2022-12-11] MEDS: Lactated Ringers 1,000 ML 15 ML IV (12:39)
[2022-12-11] MEDS: Cefazolin 2 GM in 0.9% Normal Saline 100 ML IV (13:36)
--- NOTE | 2022-12-11 13:50 | BLB_PTH ---
PATIENT: SAVANNAH CROOKS LOC: [facility] U#:[id number] AGE/SX: 72/M ROOM: [facility] [facility] RE12/11/[address]: Dr. Los Santos MD : 1950 BED: 1 DIS: 12/12/2022 SPEC #: [id number] RECD: 12/12/22 08:50 STATUS: JC MOREL #: [id number] SAL: 12/11/22 13:[address]: Los Santos DEPT: SURGICAL PATHOLOGY RECD BY: Liz Parsons ENTERED: 12/12/22 09:45 SP TYPE: TURB OTHR DR: Dr. Luiz Celeste MD Tissues: Urinary bladder, NOS Procedures: Surgery Specimen Level IV Surgery Specimen Level V HEADER OPERATION: Transurethral resection of bladder tumor and transurethral resection of prostate PRE-OP DIAGNOSIS: Bladder tumor, benign prostatic hyperplasia TISSUE SUBMITTED: Bladder tumor and prostate tissue MICROSCOPIC DIAGNOSIS Transurethral resection of bladder tumor: Noninvasive papillary urothelial carcinoma. See cancer summary in the comment section. Transurethral resection of prostate: Benign prostatic hyperplasia, glandular and stromal type. Chronic inflammation focal minimal acute inflammation. SJ:rg 12/13/2022 COMMENT BLADDER CANCER (TUR) SUMMARY Procedure: Transurethral resection of bladder tumor (TURBT) Tumor site: Not specified Histologic type: Papillary urothelial carcinoma, noninvasive Associated epithelial lesions: None identified Histologic grade: Low grade (1/3) Tumor configuration: Papillary Muscularis propria presence: No muscularis propria (detrusor muscle) identified. Lymphvascular invasion: Not identified Tumor extension: Noninvasive papillary carcinoma. Additional pathologic findings: Prostate tissue with benign prostatic hyperplasia, glandular and stromal type and chronic inflammation and minimal acute inflammation. The specimen predominantly consists of prostate tissue with a few fragments of urothelial mucosa with bladder tumor. The above summary is in compliance with [employer] (CAP) Cancer Protocols Checklist and [place] Joint Committee on Cancer (AJCC), Staging Manual, 8th Ed. Case has been reviewed in consultation with Dr. Rojas who concurs with the above diagnosis. IDC:AM MICROSCOPIC DESCRIPTION Slides are reviewed. GROSS DESCRIPTION Received in fixative is one container labeled with the patient's name and designated prostate tissue and bladder tumor. The specimen consists of multiple irregular fragments of rubbery pink-hernandez soft tissue that in aggregate measure 6.0 x 6.0 x 0.7 and weighing 22.2 gm. Hospitality [employer] portions are submitted in ten cassettes. / AM:chong 12/12/2022 TC:0 Rest of the specimen is submitted in 9 more cassettes to . / AM [id number] CPT: 37420, 82002
[2022-12-11] MEDS: Lactated Ringers 1,000 ML 125 ML IV ×2 (15:30→20:29)
--- NOTE | 2022-12-11 15:30 | DCINST_ITS ---
Discharge Instructions Diet Discharge Diet: No restrictions and Light diet - advance as tolerated Activity Discharge Activity: Return to Normal Activity and May Not Drive Follow Up Care Please Follow Up With: Los Santos MD When: Call for appointment Test Results: Test results from this visit will be discussed in further detail at your follow- up appointment, if applicable. Discharge Plan Admission Primary Reason for Your Visit: turp and resection of bladder tumor Attending Provider: Los Santos Primary Care Provider: Luiz Celeste Chi Instructions Patient Instructions: TURP Home Recovery Discharge Orders/Prescriptions Prescriptions: Continued pravastatin 40 mg Tablet 40 mg PO QHS psyllium Packet 1 packet PO DAILY Rx Instructions: mix into at least 8 oz of water or juice before administering Referrals / Follow Up: Los Santos MD [Med Staff - Active Staff] - Luiz Ceelste Chi, MD [Primary Care Provider] - Disposition Disposition (needs filled in before D/C Order can be placed): Home, Self Care
--- NOTE | 2022-12-11 15:30 | PCM.HP.STD ---
HPI - General General Date of Service: 12/11/22 Chief Complaint: Bladder tumor and BPH with obstruction HPI Narrative SAVANNAH CROOKS, is a 72 M who presents for resection of a bladder tumor he also has a very large prostate PFS Medical History Alcohol use Bladder disease Constipation High cholesterol Loss of hearing Prostate disease Smoker Home Medications pravastatin 40 mg tablet 40 mg PO QHS 12/04/22 [History Last Taken Unknown] psyllium 1 packet PO DAILY 12/04/22 [History Last Taken Unknown] Allergy/AdvReac Type Severity Reaction Status Date / Time CARBON DIOXIDE Allergy Rash Uncoded 12/04/22 09:17 Surgical History (Updated 12/04/22 @ 09:27 by Angy Rutherford) Hx of colonoscopy Hx of left cataract extraction Hx of right cataract extraction Social History Smoking Status: Current every day smoker tobacco type: cigarettes and smokeless tobacco Vital Signs Vital Signs Vital Signs: 12/11/22 12:32 12/11/22 12:32 Temperature 97.7 F L Temperature Source Temporal Pulse Rate 58 L Respiratory Rate 18 Respiratory Pattern Normal Blood Pressure 131/72 H Blood Pressure Mean 91 Blood Pressure Source Monitor Blood Pressure Position Semi-Fowlers Blood Pressure Location Right Arm Pulse Ox 96 Oxygen Delivery Method Room Air Weight Weight: 93 kg Body Mass Index (BMI) 29.4
--- NOTE | 2022-12-11 15:31 | OP.PCM_ITS ---
Report of Operation Date of Procedure: 12/11/22 Pre-Operative Diagnosis: Bladder tumor medium size about 3.5 x 2.5 x 3 cm, BPH with obstruction with a large median lobe and obstruction Post-Operative Diagnosis: Same Surgery/Procedure Performed:: Transurethral section of prostate, and transurethral resection of bladder tumor medium Description of Surgical Findings:: Patient was taken back to the operating room at the smooth induction of general anesthesia he was placed in dorsolithotomy position. The penis testicles were prepped and draped in usual sterile fashion reviewed the preop imaging he had a tumor in the bladder that was evident on MRI he also had a very large prostate on MRI so I did not do a cystoscopy in the office since the tumor was fairly evident that there was a tumor in his bladder and he had a large tumor in his b ladder that measured about 3.5 x 2.5 x 3 cm in size. Today we will proceed with the resection. Patient was taken back to the operating room with a smooth induction of general anesthesia he was placed in dorsolithotomy position the penis testicles were prepped and draped in usual sterile fashion within the bladder I first with a 21 Wallisian rigid cystourethroscope entire length of the urethra was normal he did have a very tight meatus so I did stretch the meatus with sounds and I dilated meatus starting at [address] up to 28 Wallisian then with this I went in with a 21 Wallisian rigid cystourethroscope I went inside the prostate he had a very large obstructive prostate very large median lobe and hanging lobes in the bladder causing obstruction and then within the bladder there was a papillary tumor that was coming from the prostate on the left side close to the left ureteral orifice I switched over to the 26 Wallisian continuous-flow resectoscope and started resecting this tumor I completely resected the tumor and then also identified the left ureteral orifice and the right ureteral orifice ease were uninvolved and uninjured and then as I resected the tumor the tumor was over overlying the prostate side to resect the prostate and in doing this, and created a flap side to resect the median lobe to get rid of the flap and then as a continued resecting I decided be best off to the patient just had the entire prostate resected because a anticipated can have lots of problems urinating with the flaps that were created as we resected the tumor so I spoke to the family and and they agreed to proceed with a transurethral resection of prostate the this said to leave it to my best judgment so organ to proceed with a TURP the consent was signed with the nurse over the phone we then switched over the resectoscope and started resecting the prostate we resected the median lobes the right and left median lobes resected the floor the prostate resect the right lobe of the prostate left lobe of the prostate resected apical tissue I then switched over to the button carefully resected the tissue with the button until I had a fairly wide open channel I did a flow test had a nice flow and then looks like the sphincter was intact and then we did a flow test with a full bladder had a nice flow and then I used the button to smooth out the resection and get good hemostasis and then we placed a 22 Wallisian three-way catheter into the bladder on continuous irrigation is taken back to PACU in good condition update the family and the findings of surgery Surgeon: Los Santos Type of Anesthesia: General Drains: 22fr 3 way willams Estimated Blood Loss (mL): 20 Admit VTE Documentation VTE Present on Admission: No VTE Mechan Device Prophylaxis: SCD's VTE Pharm Prophylaxis ordered?: No
[2022-12-11] MEDS: Cefazolin 1 GM/50 ML BAG IV (22:33)
[2022-12-11] MEDS: Docusate Sodium 100 MG Capsule 200 MG PO (22:36)
[2022-12-11] MEDS: Pravastatin 40 MG Tablet PO (22:36)
[2022-12-12 02:50] VITALS: BP 109/73; PULSE 73; RESP 16; TEMP 36.7; O2SAT 96
[2022-12-12] MEDS: Cefazolin 1 GM/50 ML BAG IV (05:47)
[2022-12-12] MEDS: Lactated Ringers 1,000 ML 125 ML IV (05:48)
[2022-12-12 07:19] VITALS: O2SAT 95
--- NOTE | 2022-12-12 07:40 | PCM.PN.GU ---
Subjective Subjective heplock d/c willams and home after voids Objective Data Objective Data Vital Signs: Vital Signs Temp Pulse Resp BP Pulse Ox O2 Del Method O2 Flow Rate 98.1 F 73 16 109/73 96 Room Air 6 12/12/22 02:50 12/12/22 02:50 12/12/22 02:50 12/12/22 02:50 12/12/22 02:50 12/12/22 02:50 12/11/22 15:42 Oxygen Flow Rate (L/min) 6 Oxygen Delivery Method Room Air Weight: 93 kg Body Mass Index (BMI) 29.4 Intake & Output: Intake and Output for Last 24 Hours 12/10/22 12/11/22 12/12/22 23:59 23:59 23:59 Intake Total 1782.92 / 1782.92 1999 Output Total 4175 / 4175 3000 / 3000 Balance -2392.08 / -2392.08 -1000 / -1000
--- NOTE | 2022-12-12 09:37 | NURSING ---
0800-JUÁREZ CATHETER DC'D PER ORDERS. PT TOLERATED WELL
== END 2022-12-12 10:10 | disposition home or self-care (01) ==
LOC: SDC 16:03 → MS3 16:03
PROVIDERS: Admitting Provider Urology; PCP Family Medicine Geriatric Medicine; Referring Provider Urology; Visit Provider Urology
PROC: 0T5B8ZZ Destruction of Bladder, Via Natural or Artificial Opening Endoscopic (ICD-10-PCS; CPT 51720; principal; 2022-12-11 13:40)
DX: C67.6 Malignant neoplasm of ureteric orifice (principal); E78.00 Pure hypercholesterolemia, unspecified; F17.210 Nicotine dependence, cigarettes, uncomplicated; N40.1 Benign prostatic hyperplasia with lower urinary tract symptoms; N13.8 Other obstructive and reflux uropathy; Z79.899 Other long term (current) drug therapy; F17.220 Nicotine dependence, chewing tobacco, uncomplicated
CPT/HCPCS: 52601; 52235; 00914; 88305; 88307; 93005; 94668; 96361; 96365; 96366; 99221; J7120; G0378; J2405; J3490; J9280

== ENCOUNTER → 2023-04-04 | Outpatient (CLI) | payer MEDICARE, SELFPAY ==
[2023-04-04 11:38] LABS: Absolute Lymphocyte Count 1.42 X10^3/uL (0.83-4.51); Absolute Neutrophil Count 4.7 X10^3/uL (2.0-7.7); Basophil# 0.03 X10^3/uL; Basophil% 0.4 % (0-1); Eosinophil# 0.08 X10^3/uL; Eosinophils% 1.2 % (0-5); Hematocrit 47.9 % (40-54); Hemoglobin 15.3 g/dL (13.0-16.5); Lymphocyte # 1.42 X10^3/ul (0.83-4.51); Lymphocyte % 20.5 % (19-41); Mean Corp Hgb Conc 31.9 g/dL (32-36); Mean Corpuscular Hgb 29.8 pg (27.0-32.0); Mean Corpuscular Volume 93.2 fL (80-94); Mean Platelet Vol. 10.2 fl (6.2-12.0); Monocyte# 0.69 X10^3/uL; NRBC Flagged by Analyzer 0 % (0-5); Neutrophil # 4.67 X10^3/uL (2.7-7.7); Neutrophil % 67.5 % (47-70); Platelet Count 210 K/mm3 (150-450); RBC Distribution Width CV 14.1 % (11.6-14.6); RBC Distribution Width SD 48.5 fl (35.1-43.9); Red Blood Count 5.14 M/mm3 (4.6-6.2); White Blood Count 6.9 K/mm3 (4.4-11.0)
[2023-04-04 12:03] LABS: Vitamin D,25 Hydroxy 41.2 ng/mL
[2023-04-04 12:13] LABS: ALB/GLOB Ratio 1.1 RATIO (0.9-2.4); AST(SGOT) 13 U/L (15-37); Alanine Aminotransfer ALT/SGPT 24 U/L (16-61); Albumin, Serum 3.8 g/dL (3.2-5.0); Alkaline Phosphatase 76 U/L (45-117); Anion Gap 4 (5-15); BUN 14 mg/dL (7-18); BUN/Creat Ratio 13.3 RATIO (10-20); Calcium,Total 9.4 mg/dL (8.5-10.1); Chloride 109 mmol/L (98-107); Creatinine, Serum 1.05 mg/dL (0.70-1.30); EST Glomerular Filtration Rate 74 mL/min (>60); Est Glom Filt Rate - Afr Amer 90 mL/min (>60); Globulin 3.4 g/dL (2.2-4.2); Glucose 101 mg/dL (74-106); Protein, Total 7.2 g/dL (6.4-8.2); Sodium Level 142 mmol/L (136-145); Thyroid Stim Hormone (TSH) 1.52 uIU/mL (0.358-3.74)
== END | disposition home or self-care (01) ==
LOC: LAB 11:20
PROVIDERS: PCP Family Medicine Geriatric Medicine; Visit Provider Family Medicine Geriatric Medicine
DX: R53.83 Other fatigue (principal); E55.9 Vitamin D deficiency, unspecified
CPT/HCPCS: 36415; 80053; 82306; 84443; 85025

== ENCOUNTER → 2023-10-17 | Outpatient (CLI) | payer MEDICARE, SELFPAY ==
[2023-10-17 13:11] LABS: Absolute Lymphocyte Count 1.32 X10^3/uL (0.83-4.51); Absolute Neutrophil Count 4.1 X10^3/uL (2.0-7.7); Basophil# 0.04 X10^3/uL; Basophil% 0.7 % (0-1); Eosinophil# 0.05 X10^3/uL; Eosinophils% 0.8 % (0-5); Hematocrit 44.2 % (40-54); Hemoglobin 14.6 g/dL (13.0-16.5); Lymphocyte # 1.32 X10^3/ul (0.83-4.51); Lymphocyte % 21.7 % (19-41); Mean Corpuscular Volume 90.8 fL (80-94); Mean Platelet Vol. 10.8 fl (6.2-12.0); Monocyte# 0.56 X10^3/uL; Monocyte% 9.2 % (0-10); NRBC Flagged by Analyzer 0 % (0-5); Neutrophil % 67.3 % (47-70); Platelet Count 213 K/mm3 (150-450); RBC Distribution Width CV 13.6 % (11.6-14.6); RBC Distribution Width SD 45.7 fl (35.1-43.9); Red Blood Count 4.87 M/mm3 (4.6-6.2); White Blood Count 6.1 K/mm3 (4.4-11.0)
[2023-10-17 13:51] LABS: Vitamin D,25 Hydroxy 41.3 ng/mL
[2023-10-17 14:01] LABS: ALB/GLOB Ratio 1.2 RATIO (0.9-2.4); AST(SGOT) 15 U/L (15-37); Alanine Aminotransfer ALT/SGPT 22 U/L (16-61); Albumin, Serum 3.7 g/dL (3.2-5.0); Alkaline Phosphatase 72 U/L (45-117); Anion Gap 4 (5-15); BUN 13 mg/dL (7-18); BUN/Creat Ratio 14.9 RATIO (10-20); Calcium,Total 9.3 mg/dL (8.5-10.1); Chloride 109 mmol/L (98-107); Cholesterol 197 mg/dL (200); Creatinine, Serum 0.87 mg/dL (0.70-1.30); EST Glomerular Filtration Rate 91 mL/min (>60); Est Glom Filt Rate - Afr Amer 111 mL/min (>60); Globulin 3.1 g/dL (2.2-4.2); Glucose 91 mg/dL (74-106); High Density Lipoprotein 44 mg/dL; Potassium 4.1 mmol/L (3.5-5.1); Protein, Total 6.8 g/dL (6.4-8.2); Sodium Level 138 mmol/L (136-145); Thyroid Stim Hormone (TSH) 1.87 uIU/mL (0.358-3.74); Triglycerides 90 mg/dL; Very Low Density Lipoprotein 18 mg/dL (5-40)
== END | disposition home or self-care (01) ==
LOC: LAB 11:28
PROVIDERS: PCP Family Medicine Geriatric Medicine; Referring Provider Family Medicine Geriatric Medicine; Visit Provider Family Medicine Geriatric Medicine
DX: R53.83 Other fatigue (principal); E78.5 Hyperlipidemia, unspecified; E55.9 Vitamin D deficiency, unspecified
CPT/HCPCS: 36415; 80053; 80061; 82306; 84443; 85025

== ENCOUNTER 2024-01-16 07:31 | Day surgery (SDC) | payer MEDICARE, SELFPAY ==
[2024-01-16] MEDS: Lactated Ringers 1,000 ML 15 ML IV (07:45)
--- NOTE | 2024-01-16 07:46 | EKG12_ITS ---
Test Reason : PREOP Blood Pressure : / mmHG Vent. Rate : 058 BPM Atrial Rate : 058 BPM P-R Int : 164 ms QRS Dur : 104 ms QT Int : 404 ms P-R-T Axes : 071 045 047 degrees QTc Int : 396 ms Sinus bradycardia Possible Left atrial enlargement Borderline ECG Confirmed by ADRIAN REYNA, ELLIOTT ([id number]), magazine editor CARLOS ALBERTO NIETO ([id number]) on 01/16/2024 11:32:06 AM Referred By: Los Santos Confirmed By:ELLIOTT CAMPBELL MD
[2024-01-16 07:56] VITALS: BP 124/75; PULSE 63; RESP 16; TEMP 36.5; O2SAT 98; BMI 29.6
--- NOTE | 2024-01-16 07:57 | PRE.ANES_ITS ---
ASA Classification* ASA Classification ASA Classification: 2 Assessment & Plan Anesthesia* Anesthesia Assessment Anesthesia Assessment: Discussed sedation and/or anesthesia options, risks, benefits, and alternatives with patient/parents/legal guardian/POA. Questions invited. The patient/parents/legal guardian/POA seems to understand and agrees to proceed with anesthesia plan. Reviewed the physical assessment, medical history, allergy history and patient home medications list prior to surgery/procedure/anesthetic and documented any changes. Performed airway and anesthesia risk assessments. Anesthesia Type Anesthesia Type: General Anesthesia Focused Assessment* Airway Assessment Mouth opens: >3 cm Mallampati Score: II Focused Labs Anesthesia Preop lab: CBC WBC 6.1 K/mm3 (4.4-11.0) 10/17/23 11:39 RBC 4.87 M/mm3 (4.6-6.2) 10/17/23 11:39 Hgb 14.6 g/dL (13.0-16.5) 10/17/23 11:39 Hct 44.2 % (40-54) 10/17/23 11:39 Plt Count 213 K/mm3 (150-450) 10/17/23 11:39 CHEMISTRY Potassium 4.1 mmol/L (3.5-5.1) 10/17/23 11:39 Sodium 138 mmol/L (136-145) 10/17/23 11:39 BUN 13 mg/dL (7-18) 10/17/23 11:39 Creatinine 0.87 mg/dL (0.70-1.30) 10/17/23 11:39 Glucose 91 mg/dL (74-106) 10/17/23 11:39 TSH 1.87 uIU/mL (0.358-3.74) 10/17/23 11:39 COAG Pre-Assessment Diagnosis/Proposed Procedure Planned Operative Procedure(s): Cysto, Biopsy, Fulguration,Bladder Tumor Anesthesia History Anesthesia History - inclusion paraeducator: Anesthesia History - inclusion paraeducator Hx Hospitalization Yes: 12/11/22 TURBT 01/12/24 13:26 Any Problems With Anesthesia No 01/12/24 13:26 Cholinesterase deficiency No 01/12/24 13:26 You/Your Family Experience No 01/12/24 13:26 fever (hyperthermia) with Relationship Recent Exposure to Contagious No 12/11/22 12:32 Disease Does patient have nerve No 01/12/24 13:26 stimulator Patient instructed to have device shut off --Does patient have Pacemaker or ICD? When Was Last Pacemaker Check QUESTION #4 FULL TEXT: You/Your Family Experience fever (hyperthermia) with Anesthesia Last Oral Intake Last Oral intake: Last Oral Intake NPO since Meds taken in AM with sips of water? Meds patient instructed to take am of surgery PONV PONV - inclusion paraeducator: PONV - inclusion paraeducator Female No 01/12/24 13:26 HX of Motion Sickness Yes 01/12/24 13:26 HX of N/V After Surgery No 01/12/24 13:26 Non-Smoker No 01/12/24 13:26 Duration of Surgery greater Yes 01/12/24 13:26 than 60 minutes Number of Risk Factors 2 01/12/24 13:26 PONV Score Moderate Risk 01/12/24 13:26 Height & Weight Height & Weight: Anesthesia: Height & Weight Height 5 ft 10 in 01/15/24 07:35 Weight: 92.986 kg 01/15/24 07:35 Respiratory Assessment Respiratory Assessment - inclusion paraeducator: Respiratory Tract Infection Hx - inclusion paraeducator Hx Respiratory Tract Infection No 01/12/24 13:26 STOP Sleep Apnea STOP Sleep Apnea - inclusion paraeducator: STOP Sleep Apnea - inclusion paraeducator Hx Hypertension No 01/12/24 13:26 Hx Sleep Apnea No 01/12/24 13:26 CPAP BIPAP Do you snore loudly (louder No 01/12/24 13:26 than talking or can be heard Do you often feel tired/ No 01/12/24 13:26 fatigued/ sleepy during daytime? Has anyone observed you stop No 01/12/24 13:26 breathing during sleep? STOP Results Negative 01/12/24 13:26 QUESTION #5 FULL TEXT : Do you snore loudly (louder than talking or can be heard through closed doors)? Tobacco Use History Tobacco Use History - inclusion paraeducator: Tobacco Use History - inclusion paraeducator Tobacco Use Smoking Status Current every day smoker 01/12/24 13:26 Hx Tobacco Use Yes 01/12/24 13:26 Years Smoking Packs Smoked per Day Smoking Cessation Date was within the last 15 years Hx Smoking Cessation Date Hx Smoking Cessation Counseling Hematologic Medial History Hematologic Hx - inclusion paraeducator: Hematologic Medical Hx - summer clerk Hx of Blood Transfusion No 01/12/24 13:26 Hx of Transfusion in last 3 No 01/12/24 13:26 Months Date of Last Transfusion (if within last 3 months) Ever experience any problems No 01/12/24 13:26 with transfusion(s)? Specify any problems Hx of Preganancy in last 3 N/A 01/12/24 13:26 Months Nurse Filling Out Transfusion VCHRISTIN 01/12/24 13:26 & Questions: Date: 01/12/24 01/12/24 13:26 Time: 13:27 01/12/24 13:26 Patient unable to answer at this time (ie. confused, unrespo /Reproduction History /Reproductive History - inclusion paraeducator: /Reproductive Hx- inclusion paraeducator Hx Now No 01/12/24 13:26 Gestational Age (in weeks): EDC: Hx Hx Para Hx Section SAB No 01/12/24 13:26 Active Medications Active Medications: Current Medications Generic Name Dose Route Start Last Admin Trade Name Parth PRN Reason Stop Dose Admin Cefazolin Sodium 2 gm/ Sodium 110 mls @ 150 mls/hr 01/16/24 09:30 Chloride IV 01/16/24 10:13 PREOP ONE Lactated Ringer's 1,000 mls @ 15 mls/hr 01/16/24 07:45 IV .Q48H RAF PFSH Medical History Cancer Psoriasis Chewing tobacco dependence Loss of hearing Alcohol use Prostate disease Bladder disease High cholesterol Constipation Smoker Home Medications ?Medication ?Instructions ?Recorded ?Last Taken ?Type pravastatin 40 mg tablet 40 mg PO QHS 12/04/22 Unknown History psyllium 1 packet PO DAILY 12/04/22 Unknown History finasteride 5 mg tablet 5 mg PO DAILY 01/12/24 Unknown History Allergy/AdvReac Type Severity Reaction Status Date / Time Environmental Allergies: Allergy Rash Verified 01/12/24 13:14 Uncoded Surgical History History of transurethral resection of bladder tumor (TURBT) Hx of right cataract extraction Hx of left cataract extraction Hx of colonoscopy Social History Smoking Status: Current every day smoker tobacco type: smokeless tobacco Review of Systems (Anesthesia) ROS Narrative System reviewed and no additional complaints, except as documented.
--- NOTE | 2024-01-16 09:23 | PCM.HP.STD ---
HPI - General General Date of Service: 01/16/24 Chief Complaint: Bladder tumor HPI Narrative SAVANNAH CROOKS, is a 73 M who presents cystoscopy biopsy and cauterization of small bladder tumors PFSH Medical History Cancer Psoriasis Chewing tobacco dependence Loss of hearing Alcohol use Prostate disease Bladder disease High cholesterol Constipation Smoker Home Medications ?Medication ?Instructions ?Recorded ?Last Taken ?Type pravastatin 40 mg tablet 40 mg PO QHS 12/04/22 Unknown History psyllium 1 packet PO DAILY 12/04/22 Unknown History finasteride 5 mg tablet 5 mg PO DAILY 01/12/24 Unknown History ciprofloxacin HCl 500 mg tablet 500 mg PO BID #6 tabs 01/16/24 Unknown Rx (Cipro) ibuprofen 600 mg tablet 600 mg PO Q6H PRN fever or pain 01/16/24 Unknown Rx #20 tabs Allergy/AdvReac Type Severity Reaction Status Date / Time Environmental Allergies: Allergy Rash Verified 01/12/24 13:14 Uncoded Surgical History History of transurethral resection of bladder tumor (TURBT) Hx of right cataract extraction Hx of left cataract extraction Hx of colonoscopy Social History Smoking Status: Current every day smoker tobacco type: smokeless tobacco Vital Signs Vital Signs Vital Signs: 01/16/24 07:56 01/16/24 07:56 Temperature 97.7 F L Temperature Source Temporal Pulse Rate 63 Respiratory Rate 16 Respiratory Pattern Normal Blood Pressure 124/75 H Blood Pressure Mean 91 Blood Pressure Source Monitor Blood Pressure Position Semi-Fowlers Blood Pressure Location Left Arm Pulse Ox 98 Oxygen Delivery Method Room Air Weight Weight: 93.7 kg Body Mass Index (BMI) 29.6
--- NOTE | 2024-01-16 09:23 | EX.PCM.DISCH ---
Discharge Instructions Procedure Urology Diet Discharge Diet: No restrictions Activity Discharge Activity: Return to Normal Activity and May Not Drive (while taking narcotic pain medications.) Dressing / Incision Call your doctor if you observe: Fever of 101 or Higher Follow Up Care Please Follow Up With: Los Santos MD When: Call [phone] for an appointment Test Results: Test results from this visit will be discussed in further detail at your follow-up appointment, if applicable. Discharge Plan Admission Primary Reason for Your Visit: bladder biopsy and fulguration Attending Provider: Los Santos Primary Care Provider: Luiz Celeste Chi Instructions Print Language: Beninese Discharge Orders/Prescriptions Prescriptions: New ciprofloxacin HCl [Cipro] 500 mg tablet 500 mg PO BID Qty: 6 0RF ibuprofen 600 mg tablet 600 mg PO Q6H PRN (Reason: fever or pain) Qty: 20 0RF No Action pravastatin 40 mg Tablet 40 mg PO QHS psyllium Packet 1 packet PO DAILY Rx Instructions: mix into at least 8 oz of water or juice before administering finasteride 5 mg tablet 5 mg PO DAILY Referrals / Follow Up: Los Santos MD [Med Staff - Active Staff] - Luiz Celeste Chi, MD [Primary Care Provider] - Disposition Disposition (needs filled in before D/C Order can be placed): Home, Self Care
--- NOTE | 2024-01-16 09:30 | BLB_PTH ---
PATIENT: SAVANNAH CROOKS LOC: [facility] [place][id number] AGE/SX: 73/M ROOM: RE01/16/[address]: Dr. Los Santos MD : [id number] BED: DIS: 01/16/2024 SPEC #: [id number] RECD: 01/16/24 11:53 STATUS: JC MOREL #: [id number] SAL: 01/16/24 09:[address]: Los Santos DEPT: SURGICAL PATHOLOGY RECD BY: Liz Parsons ENTERED: 01/16/24 12:07 SP TYPE: TURB OTHR DR: Dr. Luiz Celeste MD Tissues: Urinary bladder, NOS Procedures: Surgery Specimen Level V HEADER OPERATION: Biopsy, fulguration, bladder tumor PRE-OP DIAGNOSIS: Bladder tumor TISSUE SUBMITTED: Bladder tumor MICROSCOPIC DIAGNOSIS Bladder tumor, biopsy: Noninvasive papillary urothelial carcinoma. See cancer summary in the comment section. VIVI/ 01/19/2024 COMMENT BLADDER CANCER SUMMARY: Procedure - biopsy Tumor site - Not identified Histologic type - Papillary urothelial carcinoma, noninvasive Associated epithelial lesions - none identified. Histologic grade - low grade (1/3) Tumor configuration - Papillary Muscularis propria presence - no muscularis propria (detrusor muscle) identified Lymphvascular invasion - Not identified Tumor extension: Noninvasive papillary carcinoma Additional pathologic findings - Chronic inflammation PATHOLOGIC STAGE: operations clerk pNx pMx The above summary is in compliance with [employer] (CAP) Cancer Protocols Checklist and [place] [employer] on Cancer (AJCC), Staging Manual, 8th Ed. Case has been reviewed in consultation with Dr. Rojas who concurs with the above diagnosis. IDC:AM MICROSCOPIC DESCRIPTION Slides are reviewed. GROSS DESCRIPTION Received in fixative is one container labeled with the patient's name and designated Bladder tumor. The specimen consists of one irregular fragment of light hernandez soft tissue that measures 0.2 x 0.2 x 0.1 cm. The specimen is totally submitted in one cassette. VIVI/ 01/16/2024 TC:0 CPT:52183
[2024-01-16] MEDS: Cefazolin 2 GM in 0.9% Normal Saline (100mL Bag) 100 ML IV (09:43)
--- NOTE | 2024-01-16 09:59 | PCM.OPRPT ---
Report of Operation Date of Procedure: 01/16/24 Pre-Operative Diagnosis: Bladder cancer tumors Post-Operative Diagnosis: The same Surgery/Procedure Performed:: Cystoscopy bladder biopsies of tumor and cauterization of tumors Description of Surgical Findings:: 73-year-old male was taken back to the operating room after smooth induction of anesthesia he was placed in dorsolithotomy position, the penis and testicles were prepped and draped in usual sterile fashion went into the bladder with a 21 Vincentian rigid cystourethroscope to use both white light and bluelight technology and identified 2 tumors in the back of the bladder 1 is about 1 cm in size and the other tumor was half a centimeter in size I biopsy the larger tumor and sent this off as a specimen and then I cauterized both the sites completely with the Bugbee electrode using 30 W of energy to cauterize the sites I then extensively look around the rest of the bladder I do not see any other lesions or tumors within the bladder I then drained the bladder patient's anesthetic was reversed taken back to PACU in good condition plan to see him back in a few weeks to review the biopsies and we will probably recommend we do BCG therapy to prevent more tumors. Surgeon: Los Santos Type of Anesthesia: General Drains: none Estimated Blood Loss (mL): 0 Admit VTE Documentation VTE Present on Admission: No VTE Mechan Device Prophylaxis: SCD's VTE Pharm Prophylaxis ordered?: No
[2024-01-16 10:10] VITALS: BP 118/78; BP 125/75; PULSE 62; RESP 18; TEMP 35.9; O2SAT 99
[2024-01-16 10:13] VITALS: BP 112/78; BP 118/82; BP 125/75; PULSE 63; PULSE 64; RESP 16; RESP 18; TEMP 36.1; O2SAT 95; O2SAT 98
--- NOTE | 2024-01-16 10:13 | PCM.POST.ANE ---
Anesthesia: Postop Eval I Current Vital Signs Temperature: 97 F Pulse Rate: 64 Blood Pressure: 112/78 Respiratory Rate: 16 Pulse Ox: 98 Oxygen Delivery Method: Room Air Assessment Airway patent: Yes Spontaneous unlabored respirations: Yes Mental status: Awake and Calm nausea: No Vomiting: No Anesthesia Complication: No Fluid Hydration Crystalloid volume administer (ml): 600 Total IV fluid infused: 600 Progress Note Anesthesia document: Postop Eval 1 completed: Yes
[2024-01-16 10:20] VITALS: BP 117/76; BP 125/75; PULSE 62; RESP 18; O2SAT 96
[2024-01-16 10:25] VITALS: BP 125/75; BP 127/80; PULSE 62; RESP 18; TEMP 36.2; O2SAT 96
[2024-01-16] MEDS: Ketorolac 15 MG/ML Vial IV (10:39)
[2024-01-16 10:53] VITALS: BP 125/75
--- NOTE | 2024-01-16 11:00 | POSTOPAN2_ITS ---
Anesthesia Postop Eval I Sum Postop Eval Completion status Anesthesia document: Postop Eval 1 completed: Yes Anesthesia Postop Eval I Summary Anesthesia Postop Eval I Summary: Anesthesia Postop Eval I: Assessment Summary Airway patent Yes 01/16/24 10:13 WASTE [email or web address] Spontaneous unlabored Yes 01/16/24 10:13 WASTE [email or web address].[email or web address] respirations Mental status Awake,Calm 01/16/24 10:13 WASTE [email or web address].[email or web address] nausea No 01/16/24 10:13 WASTE [email or web address].[email or web address] Vomiting No 01/16/24 10:13 WASTE REMOVALISTMICHELLE Anesthesia Postop Eval I: Fluid Summary Crystalloid volume administer 600 01/16/24 10:13 WASTE [email or web address].[email or web address] (ml) Colloids volume administered ( ml) Blood Product volume administered (ml) Total IV fluid infused 600 01/16/24 10:13 WASTE REMOVALISTMICHELLE Anesthesia Postop Eval I: Summary Notes Anesthesia Complication No 01/16/24 10:13 WASTE REMOVALISTMICHELLE Anesthesia Complication Comment: Post-operative progress note Anesthesia: Postop Eval II Evaluation Mental status: Awake Pain Level: 0 nausea: No Vomiting: No Complications Anesthesia Complication: No
--- NOTE | 2024-01-16 11:00 | PCM.POSTANE2 ---
Anesthesia Postop Eval I Sum Postop Eval Completion status Anesthesia document: Postop Eval 1 completed: Yes Anesthesia Postop Eval I Summary Anesthesia Postop Eval I Summary: Anesthesia Postop Eval I: Assessment Summary Airway patent Yes 01/16/24 10:13 NICKER AND BREAKER.[email or web address] Spontaneous unlabored Yes 01/16/24 10:13 NICKER AND BREAKER.[email or web address] respirations Mental status Awake,Calm 01/16/24 10:13 NICKER AND BREAKER.BERNIE nausea No 01/16/24 10:13 NICKER AND BREAKER.BERNIE Vomiting No 01/16/24 10:13 NICKER AND BREAKERMICHELLE Anesthesia Postop Eval I: Fluid Summary Crystalloid volume administer 600 01/16/24 10:13 NICKER AND BREAKER.BERNIE (ml) Colloids volume administered ( ml) Blood Product volume administered (ml) Total IV fluid infused 600 01/16/24 10:13 NICKER AND BREAKERMICHELLE Anesthesia Postop Eval I: Summary Notes Anesthesia Complication No 01/16/24 10:13 NICKER AND BREAKERMICHELLE Anesthesia Complication Comment: Post-operative progress note Anesthesia: Postop Eval II Evaluation Mental status: Awake Pain Level: 0 nausea: No Vomiting: No Complications Anesthesia Complication: No
== END 2024-01-16 10:55 | disposition home or self-care (01) ==
LOC: SDC 07:37 → AC 07:37
PROVIDERS: PCP Family Medicine Geriatric Medicine; Referring Provider Urology; Visit Provider Urology
PROC: 0TBB8ZX Excision of Bladder, Via Natural or Artificial Opening Endoscopic, Diagnostic (ICD-10-PCS; CPT 52204; principal; 2024-01-16 09:20)
DX: C67.9 Malignant neoplasm of bladder, unspecified (principal); E78.00 Pure hypercholesterolemia, unspecified; F17.220 Nicotine dependence, chewing tobacco, uncomplicated; Z79.899 Other long term (current) drug therapy
CPT/HCPCS: 52204; 00910; 88307; 93005; J7120; J2405

== ENCOUNTER → 2024-01-27 | Outpatient (CLI) | payer MEDICARE, SELFPAY ==
[2024-01-27 16:14] LABS: PSA,Total- Diagnostic 7.18 ng/mL (0.0-4.0)
== END | disposition home or self-care (01) ==
LOC: LAB 15:26
PROVIDERS: PCP Family Medicine Geriatric Medicine; Referring Provider Urology; Visit Provider Urology
DX: R97.20 Elevated prostate specific antigen [PSA] (principal)
CPT/HCPCS: 36415; 84153

== ENCOUNTER → 2024-03-08 | Outpatient (CLI) | payer MEDICARE, SELFPAY ==
--- NOTE | 2024-03-08 16:52 | RAD_ITS ---
INDICATION: WHEEZING EXAMINATION/TECHNIQUE: X-RAY - XR Chest 2 Views COMPARISON: FINDINGS: LINES/DEVICES: None. LUNGS: No consolidation, edema or effusion. No pneumothorax. MEDIASTINUM AND CARDIOVASCULAR STRUCTURES: Cardiac silhouette not enlarged. Central airways and mediastinal contour are unremarkable. BONES AND SOFT TISSUES: Unremarkable. RAD/Chest PA and Lateral IMPRESSION: No radiographic evidence of acute cardiopulmonary disease. Electronically Signed: Ramiro Murray DO at 21:47 EDT ,
== END | disposition home or self-care (01) ==
LOC: POLAB3 16:47 → RAD 16:51
PROVIDERS: PCP Family Medicine Geriatric Medicine; Referring Provider Family Medicine Geriatric Medicine; Visit Provider Family Medicine Geriatric Medicine
DX: R68.83 Chills (without fever) (principal); R06.2 Wheezing
CPT/HCPCS: 71046; 87631

== ENCOUNTER → 2024-03-29 | Outpatient (CLI) | payer MEDICARE, SELFPAY | END | disposition home or self-care (01) | LOC: POLAB3 16:16 | PROVIDERS: PCP Family Medicine Geriatric Medicine; Visit Provider Family Medicine Geriatric Medicine | DX: R68.83 Chills (without fever) (principal) | CPT/HCPCS: 87631 ==

== ENCOUNTER → 2024-04-09 | Outpatient (CLI) | payer MEDICARE, SELFPAY ==
[2024-04-09 14:48] LABS: Absolute Lymphocyte Count 1.68 X10^3/uL (0.83-4.51); Absolute Neutrophil Count 6.7 X10^3/uL (2.0-7.7); Basophil# 0.04 X10^3/uL; Basophil% 0.4 % (0-1); Eosinophil# 0.16 X10^3/uL; Eosinophils% 1.7 % (0-5); Hematocrit 44.5 % (40-54); Hemoglobin 14.5 g/dL (13.0-16.5); Lymphocyte # 1.68 X10^3/ul (0.83-4.51); Lymphocyte % 17.9 % (19-41); Mean Corp Hgb Conc 32.6 g/dL (32-36); Mean Corpuscular Hgb 30.1 pg (27.0-32.0); Mean Corpuscular Volume 92.5 fL (80-94); Mean Platelet Vol. 9.7 fl (6.2-12.0); Monocyte% 7.5 % (0-10); NRBC Flagged by Analyzer 0 % (0-5); Neutrophil # 6.73 X10^3/uL (2.7-7.7); Platelet Count 232 K/mm3 (150-450); RBC Distribution Width CV 14.9 % (11.6-14.6); Red Blood Count 4.81 M/mm3 (4.6-6.2); White Blood Count 9.4 K/mm3 (4.4-11.0)
[2024-04-09 15:21] LABS: Vitamin D,25 Hydroxy 32.9 ng/mL
[2024-04-09 16:35] LABS: ALB/GLOB Ratio 1.2 RATIO (0.9-2.4); AST(SGOT) 11 U/L (15-37); Alanine Aminotransfer ALT/SGPT 21 U/L (16-61); Albumin, Serum 3.7 g/dL (3.2-5.0); Alkaline Phosphatase 72 U/L (45-117); Anion Gap 1 (5-15); BUN 12 mg/dL (7-18); BUN/Creat Ratio 12.8 RATIO (10-20); Calcium,Total 9.1 mg/dL (8.5-10.1); Chloride 108 mmol/L (98-107); Cholesterol 193 mg/dL (200); Creatinine, Serum 0.94 mg/dL (0.70-1.30); EST Glomerular Filtration Rate 84 mL/min (>60); Est Glom Filt Rate - Afr Amer 102 mL/min (>60); Globulin 3.2 g/dL (2.2-4.2); Glucose 94 mg/dL (74-106); High Density Lipoprotein 74 mg/dL; Potassium 4.2 mmol/L (3.5-5.1); Protein, Total 6.9 g/dL (6.4-8.2); Sodium Level 138 mmol/L (136-145); Triglycerides 58 mg/dL; Very Low Density Lipoprotein 12 mg/dL (5-40)
== END | disposition home or self-care (01) ==
LOC: LAB 14:09
PROVIDERS: PCP Family Medicine Geriatric Medicine; Referring Provider Family Medicine Geriatric Medicine; Visit Provider Family Medicine Geriatric Medicine
DX: E78.5 Hyperlipidemia, unspecified (principal); R53.83 Other fatigue; E55.9 Vitamin D deficiency, unspecified
CPT/HCPCS: 36415; 80053; 80061; 82306; 84443; 85025

== ENCOUNTER → 2024-07-02 | Outpatient (CLI) | payer MEDICARE, SELFPAY | END | disposition home or self-care (01) | LOC: POLAB3 11:17 | PROVIDERS: PCP Family Medicine Geriatric Medicine; Visit Provider Family Medicine Geriatric Medicine | DX: R68.83 Chills (without fever) (principal) | CPT/HCPCS: 87631 ==

== ENCOUNTER → 2024-10-12 | Outpatient (CLI) | payer MEDICARE, SELFPAY | END | disposition home or self-care (01) | PROVIDERS: PCP Family Medicine Geriatric Medicine; Referring Provider Family Medicine Geriatric Medicine; Visit Provider Family Medicine Geriatric Medicine | DX: J98.8 Other specified respiratory disorders (principal) | CPT/HCPCS: 87631 ==

== ENCOUNTER → 2024-10-18 | Outpatient (CLI) | payer MEDICARE, SELFPAY ==
[2024-10-18 18:17] LABS: Absolute Lymphocyte Count 2.58 X10^3/uL (0.83-4.51); Absolute Neutrophil Count 10.2 X10^3/uL (2.0-7.7); Basophil# 0.07 X10^3/uL; Basophil% 0.5 % (0-1); Eosinophil# 0.06 X10^3/uL; Eosinophils% 0.4 % (0-5); Hematocrit 44.2 % (40-54); Hemoglobin 15.1 g/dL (13.0-16.5); Lymphocyte # 2.58 X10^3/ul (0.83-4.51); Lymphocyte % 18.3 % (19-41); Mean Corp Hgb Conc 34.2 g/dL (32-36); Mean Corpuscular Hgb 30.8 pg (27.0-32.0); Mean Corpuscular Volume 90.2 fL (80-94); Mean Platelet Vol. 9.7 fl (6.2-12.0); Monocyte% 7.1 % (0-10); NRBC Flagged by Analyzer 0 % (0-5); Neutrophil # 10.22 X10^3/uL (2.7-7.7); Neutrophil % 72.5 % (47-70); Platelet Count 260 K/mm3 (150-450); RBC Distribution Width CV 14.2 % (11.6-14.6); RBC Distribution Width SD 46.5 fl (35.1-43.9); White Blood Count 14.1 K/mm3 (4.4-11.0)
[2024-10-18 18:54] LABS: ALB/GLOB Ratio 1.8 RATIO (0.9-2.4); AST(SGOT) 18 U/L (<=37); Alanine Aminotransfer ALT/SGPT 13 U/L (<=46); Albumin, Serum 4.4 g/dL (3.4-4.8); Alkaline Phosphatase 70 U/L (40-129); Anion Gap 10 (5-15); BUN 13 mg/dL (4-19); BUN/Creat Ratio 13.3 RATIO (10-20); Calcium,Total 9.6 mg/dL (7.6-11.0); Carbon Dioxide 25.5 mmol/L (21.0-32.0); Chloride 104 mmol/L (98-108); Cholesterol 174 mg/dL (<=200); EST Glomerular Filtration Rate 80 (>60); Globulin 2.4 g/dL (2.2-4.2); Glucose 88 mg/dL (70-99); High Density Lipoprotein 59 mg/dL; Low Density Lipoprotein Calc. 91 mg/dL; Potassium 4.1 mmol/L (3.3-5.1); Protein, Total 6.7 g/dL (5.9-8.4); Sodium Level 139 mmol/L (133-145); Total Bilirubin 0.42 mg/dL (0.00-1.30); Triglycerides 120 mg/dL; Very Low Density Lipoprotein 24 mg/dL (5-40); Vitamin D,25 Hydroxy 40.7 ng/mL (30-100); cholesterol:hdl ratio screen 2.94
== END | disposition home or self-care (01) ==
LOC: LAB 16:58
PROVIDERS: PCP Family Medicine Geriatric Medicine; Referring Provider Family Medicine Geriatric Medicine; Visit Provider Family Medicine Geriatric Medicine
DX: E78.5 Hyperlipidemia, unspecified (principal); R53.83 Other fatigue; E55.9 Vitamin D deficiency, unspecified
CPT/HCPCS: 36415; 80053; 80061; 82306; 84443; 85025

== ENCOUNTER → 2025-05-06 | Outpatient (CLI) | payer MEDICARE, SELFPAY ==
[2025-05-06 11:07] LABS: Hematocrit 43.8 % (40-54); Hemoglobin 14.5 g/dL (13.0-16.5); Immature Granulocytes Count 0.020 X10^3/uL (0.0-0.0); Mean Corp Hgb Conc 33.1 g/dL (32-36); Mean Corpuscular Volume 91.4 fL (80-94); Mean Platelet Vol. 10.1 fl (6.2-12.0); NRBC Flagged by Analyzer 0 % (0-5); Platelet Count 223 K/mm3 (150-450); RBC Distribution Width CV 14.2 % (11.6-14.6); RBC Distribution Width SD 47.9 fl (35.1-43.9); Red Blood Count 4.79 M/mm3 (4.6-6.2); White Blood Count 6.9 K/mm3 (4.4-11.0)
--- OUTSIDE RECORDS SUMMARY | 2025-05-06 11:42 | XMS RPT_ITS | CCD ---
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 Luiz Celeste Chi Primary Care Provider Dr. Yosef Delong Attending Provider [phone] Jaron Randle Referring Provider Booker REYNA, Dr. Luiz Nunez Primary Care Provider Booker REYNA, Dr. Luiz Nunez Attending Provider Booker REYNA, Dr. Luiz Nunez Referring Provider DanielleLosArsalan Referring Unavailable Booker, Luiz Chi Primary Care Unavailable Yosef Delong Attending Unavailable Booker, Luiz Chi Attending Unavailable Booker, Luiz Chi Primary Care Unavailable Booker, Luiz Chi Attending Unavailable Booker, Luiz Chi Referring Unavailable Booker, Luiz Chi Primary Care Unavailable Booker, Luiz Chi Attending Unavailable Booker, Luiz Chi Referring Unavailable Booker, Luiz Chi Primary Care Unavailable Danielle, Arsalan Attending Unavailable Danielle, Arsalan Referring Unavailable Booker, Luiz Chi Primary Care Unavailable Booker, Luiz Chi Attending Unavailable Booker, Luiz Chi Referring Unavailable Booker, Luiz Chi Primary Care Unavailable Danielle, Arsalan Attending Unavailable Booker, Luiz Chi Primary Care Unavailable Danielle, Arsalan Referring Unavailable Booker, Luiz Chi Attending Unavailable Booker, Luiz Chi Primary Care Unavailable Booker, Luiz Chi Attending Unavailable Booker, Luiz Chi Referring Unavailable Booker, Luiz Chi Primary Care Unavailable Allergies Allergy Classification Reported Allergen(s) Allergy Type Date of Onset Reaction(s) Facility (1 source) Environmental Allergies: Uncoded; Translations: [Environmental Allergies: Uncoded] Propensity to adverse reactions (disorder) [address] [facility] Rep[facility] Medications Current Medications Medication Drug Class(es) Dates Sig (Normalized) Sig (Original) ciprofloxacin 500 mg oral tablet (1 source) Quinolone Antimicrobial Start: 01-16-2024 take 1 tablet by mouth twice daily Ciprofloxacin Hcl (Cipro) 500 mg tablet Active 500 mg PO TWICE A DAY January 16, 2024 12:00am finasteride 5 mg oral tablet (1 source) 5-alpha Reductase Inhibitor Start: 01-12-2024 take 1 tablet by mouth once daily Finasteride 5 mg tablet Active 5 mg PO DAILY January 12, 2024 12:00am ibuprofen 600 mg oral tablet (1 source) Nonsteroidal Anti-inflammatory Drug Start: 01-16-2024 take 1 tablet by mouth every six hours as needed for pain Ibuprofen 600 mg tablet Active 600 mg PO EVERY 6 HOURS as needed for fever or pain January 16, 2024 12:00am pravastatin sodium 40 mg oral tablet (4 sources) HMG-CoA Reductase Inhibitor Start: 12-04-2022 take 1 tablet by mouth at bedtime Pravastatin 40 mg Tablet Active 40 mg PO AT BEDTIME December 04, 2022 12:00am Psyllium (3 sources) Start: 12-04-2022 take 8 [oz_av] by mouth once daily Psyllium Active 1 PACKET PO DAILY December 04, 2022 12:00am mix into at least 8 oz of water or juice before administering Psyllium Packet (1 source) Start: 12-04-2022 take 8 [oz_av] by mouth once daily Psyllium Packet Active 1 NMA PO DAILY December 04, 2022 12:00am mix into at least 8 oz of water or juice before administering Problems Active Problems Problem Classification Problem Date Documented Da te Episodic/Chronic Cancer of bladder (1 source) Malignant neoplasm of bladder, unspecified; Translations: [Malignant neoplasm of bladder, unspecified] Onset: 02-02-2024 Chronic Disorders of lipid metabolism (1 source) Hyperlipidemia, unspecified; Translations: [Hyperlipidemia, unspecified] Onset: 10-21-2024 Chronic Other lower respiratory disease (1 source) Other specified respiratory disorders; Translations: [Other specified respiratory disorders] Onset: 10-18-2024 Episodic Residual codes; unclassified (1 source) Chills (without fever); Translations: [Chills (without fever)] Onset: 07-26-2024 Episodic Past or Other Problems Problem Classification Problem Date Documented Da te Episodic/Chronic Other screening for suspected conditions (not mental disorders or infectious disease) (1 source) Elevated prostate specific antigen [PSA]; Translations: [Elevated prostate specific antigen [PSA]] Onset: 02-18-2024 Episodic Results Test Name Value Interpretation Reference Range Facility Thyroid Stim Hormone (TSH)on 10-20-2024 TSH 2.140 uIU/mL Normal 0.300-4.[address] [facility] Comment on above: Performed By: #### M 100.678 #### [facility] [address] [place], [place], [id number] Absolute lymphocyte countOrd ered By: Luiz Booker on 10-18-2024 Lymphocytes Auto (Unsp spec) [#/Vol] 2.58 10*3/uL 0.83-4.[address] [facility] Absolute neutrophil countOrd ered [facility]: [facility] Neutrophils (Bld) [#/Vol] 10.2 10*3/uL High 2.0-7.[address] [facility] Anion gap in Serum or Plasma Ordered By: Luiz Celeste on 10-18-2024 Anion gap [Moles/Vol] 10 mmol/L 5-15 [facility] Automated lymphocyte count a s percentage of total leukocytesOrdered By: [facility] Booker on 10-18-2024 Lymphocytes/100 WBC Auto (Unsp spec) 18.3 % Low 19-[address] [facility] BUN/creatinine ratioOrdered By: [facility] 10-18-2024 Urea nitrogen/Creatinine [Mass ratio] 13.3 mg/mg 10-[address] [facility] Basophil percentageOrdered B y: Luiz Celeste on 10-18-2024 Basophils/100 WBC (Bld) 0.5 % 0-1 [facility] Bilirubin, totalOrdered By: Luiz Booker on 10-18-2024 Bilirubin [Mass/Vol] 0.42 mg/dL 0.00-1.30 [facility] CBC W/Diff, Automatedon Absolute Lymph 2.58 X10 3/uL Normal 0.83-4.[address] [facility] Comment on above: Performed By: #### M [id number] #### [facility] [address] [place], [address] Absolute Neut 10.2 X10 3/uL High 2.0-7.[address] [facility] Comment on above: Performed By: #### M [id number] #### [facility] [address] [place], [address] Basophils/100 WBC (Bld) 0.5 % Normal 0-1 [facility] Comment on above: Performed By: #### M [id number] #### [facility] [address] [place], [address] Eosinophils/100 WBC (Bld) 0.4 % Normal 0-[address] [facility] Comment on above: Performed By: #### M [id number] #### [facility] [address] [place], [address] Erythrocyte distribution width (RBC) [Ratio] 14.2 % Normal 11.6-14.[address] [facility] Comment on above: Performed By: #### M [id number] #### [facility] [address] [place], [address] Hematocrit (Bld) [Volume fraction] 44.2 % Normal 40-[address] [facility] Comment on above: Performed By: #### M [id number] #### [facility] [address] [place], [address] Hemoglobin (Bld) [Mass/Vol] 15.1 g/dL Normal 13.0-16.[address] [facility] Comment on above: Performed By: #### M [id number] #### [facility] [address] [place], [address] IG% 1.200 High 0.0-0.[address] [facility] Comment on above: Result Comment: IG% - Immature Granulocytes (promyelocytes, myelocytes and metamyelocytes) > 1% indicates that a LEFT SHIFT is Present. Performed By: #### M [id number] #### [facility] [address] [place], [address] Lymphocytes/100 WBC (Bld) 18.3 % Low 19-[address] [facility] Comment on above: Performed By: #### M [id number] #### [facility] [address] [place], [address] MCH (RBC) [Entitic mass] 30.8 pg Normal 27.0-32.[address] [facility] Comment on above: Performed By: #### M [id number] #### [facility] [address] [place], [address] MCHC (RBC) [Mass/Vol] 34.2 g/dL Normal 32-36 [facility] Comment on above: Performed By: #### M [id number] #### [facility] [address] [place], [address] MCV (RBC) [Entitic vol] 90.2 fL Normal 80-94 [facility] Comment on above: Performed By: #### M [id number] #### [facility] [address] [place], [address] Monocytes/100 WBC (Bld) 7.1 % Normal 0-10 [facility] Comment on above: Performed By: #### M [id number] #### [facility] [address] [place], [address] Neutrophils/100 WBC (Bld) 72.5 % High 47-[address] [facility] Comment on above: Performed By: #### M [id number] #### [facility] [address] [place], [address] Nucleated RBC (Bld) [#/Vol] 0 10*3/uL Normal 0-[address] [facility] Comment on above: Performed By: #### M [id number] #### [facility] [address] [place], [address] Platelet mean volume (Bld) [Entitic vol] 9.7 fL Normal 6.2-12.[address] [facility] Comment on above: Performed By: #### M [id number] #### [facility] [address] [place], [address] Platelets (Bld) [#/Vol] 260 10*3/uL Normal 150-[address] [facility] Comment on above: Performed By: #### M [id number] #### [facility] [address] [place], [address] RBC (Bld) [#/Vol] 4.90 10*6/uL Normal 4.6-6.[address] [facility] Comment on above: Performed By: #### M [id number] #### [facility] [address] [place], [address] RDW SD 46.5 fl High 35.1-43.[address] [facility] Comment on above: Performed By: #### M [id number] #### [facility] [address] [place], [address] WBC (Bld) [#/Vol] 14.1 10*3/uL High 4.4-11.[address] [facility] Comment on above: Performed By: #### M [id number] #### [facility] [address] [place], [address] Calculated very low density lipoprotein (VLDL) cholesterol measurementOrdered By: Luiz Celeste on 10-18-2024 Calculated very low density lipoprotein (VLDL) cholesterol measurement 24 mg/dL 5-[address] [facility] Carbon dioxide, total [Moles /volume] in Central venous bloodOrdered By: Luiz Celeste on 10-18-2024 CO2 [Moles/Vol] 25.5 mmol/L 21.0-32.[address] [facility] Chloride assayOrdered By: Tariq Celeste on 10-18-2024 Chloride [Moles/Vol] 104 mmol/L 98-108 [facility] Comprehensive Metabolic Prof ilon 10-18-2024 Albumin [Mass/Vol] 4.4 g/dL Normal 3.4-4.8 [facility] Comment on above: Order Comment: TSH Performed By: #### M [id number] #### [facility] [address] [place], [address] Albumin/Globulin [Mass ratio] 1.8 {ratio} Normal 0.9-2.[address] [facility] Comment on above: Order Comment: TSH Performed By: #### M [id number] #### [facility] [address] [place], [address] ALK PHOS 70 U/L Normal 40-[address] [facility] Comment on above: Order Comment: TSH Performed By: #### M [id number] #### [facility] [address] [place], [address] ALT [Catalytic activity/Vol] 13 U/L Normal <=[address] [facility] Comment on above: Order Comment: TSH Performed By: #### M [id number] #### [facility] [address] [place], [address] AST [Catalytic activity/Vol] 18 U/L Normal <=[address] [facility] Comment on above: Order Comment: TSH Performed By: #### M [id number] #### [facility] [address] [place], [address] Bilirubin [Mass/Vol] 0.42 mg/dL Normal 0.00-1.30 [facility] Comment on above: Order Comment: TSH Performed By: #### M [id number] #### [facility] [address] [place], [address] BUN/CRE 13.3 RATIO Normal 10-[address] [facility] Comment on above: Order Comment: TSH Performed By: #### M [id number] #### [facility] [address] [place], [address] Calcium [Mass/Vol] 9.6 mg/dL Normal 7.6-11.0 [facility] Comment on above: Order Comment: TSH Performed By: #### M [id number] #### [facility] [address] [place], [address] Chloride [Moles/Vol] 104 mmol/L Normal 98-108 [facility] Comment on above: Order Comment: TSH Performed By: #### M [id number] #### [facility] [address] [place], [address] CO2 [Moles/Vol] 25.5 mmol/L Normal 21.0-32.[address] [facility] Comment on above: Order Comment: TSH Performed By: #### M [id number] #### [facility] [address] [place], [address] Creatinine [Mass/Vol] 1.00 mg/dL Normal 0.70-1.20 [facility] Comment on above: Order Comment: TSH Performed By: #### M [id number] #### [facility] [address] [place], [address] GAP 10 Normal 5-[address] [facility] Comment on above: Order Comment: TSH Performed By: #### M [id number] #### [facility] [address] [place], [address] GFR/1.73 sq M.predicted among non-blacks MDRD (S/P/Bld) [Vol rate/Area] 80 mL/min/{1.73_m2} Normal >[address] [facility] Comment on above: Order Comment: TSH Result Comment: mL/m in/1.73m2 CKD-EPI Creatinine Equation (2020) Performed By: #### M [id number] #### [facility] [address] [place], [address] Globulin (S) [Mass/Vol] 2.4 g/dL Normal 2.2-4.2 [facility] Comment on above: Order Comment: TSH Performed By: #### M [id number] #### [facility] [address] [place], [address] Glucose [Mass/Vol] 88 mg/dL Normal 70-99 [facility] Comment on above: Order Comment: TSH Performed By: #### M [id number] #### [facility] [address] [place], [address] Potassium [Moles/Vol] 4.1 mmol/L Normal 3.3-5.1 [facility] Comment on above: Order Comment: TSH Performed By: #### M [id number] #### [facility] [address] [place], [address] Sodium [Moles/Vol] 139 mmol/L Normal 133-145 [facility] Comment on above: Order Comment: TSH Performed By: #### M [id number] #### [facility] [address] [place], [address] T PROT 6.7 g/dL Normal 5.9-8.[address] [facility] Comment on above: Order Comment: TSH Performed By: #### M [id number] #### [facility] [address] [place], [address] Urea nitrogen [Mass/Vol] 13 mg/dL Normal 4-[address] [facility] Comment on above: Order Comment: TSH Performed By: #### M [id number] #### [facility] [address] [place], [address] Eosinophil percentageOrdered By: Luiz Celeste on 10-18-2024 Eosinophils/100 WBC (Bld) 0.4 % 0-[address] [facility] Erythrocyte distribution wid th ratioOrdered By: Luiz Celeste on 10-18-2024 Erythrocyte distribution width (RBC) [Ratio] 14.2 % 11.6-14.[address] [facility] Erythrocyte distribution wid th standard deviationOrdered By: Luiz Celeste on 10-18-2024 Erythrocyte distribution width (RBC) [Ratio] 46.5 fl High 35.1-43.[address] [facility] Glomerular filtration rate ( GFR) estimation/1.73 sq m using serum, plasma, or whole bOrdered By: Luiz Celeste on 10-18-2024 GFR/1.73 sq M.predicted among non-blacks MDRD (S/P/Bld) [Vol rate/Area] 80 mL/min/{1.73_m2} >[address] [facility] Comment on above: mL/min/1.73m2 CKD-EP I Creatinine Equation (2020) Hematocrit Auto (Bld) [Volum e fraction]Ordered By: Luiz Celeste on 10-18-2024 Hematocrit (Bld) [Volume fraction] 44.2 % 40-[address] [facility] Hemoglobin measurementOrdere d By: Luiz Celeste on 10-18-2024 Hemoglobin (Bld) [Mass/Vol] 15.1 g/dL 13.0-16.[address] [facility] Immature granulocytes/100 WB C Auto (Bld)Ordered By: Luiz Celeste on 10-18-2024 Immature granulocytes/100 WBC (Bld) 1.200 % High 0.0-0.[address] [facility] Comment on above: IG% - Immature Granu locytes (promyelocytes, myelocytes and metamyelocytes) > 1% indicates that a LEFT SHIFT is Present. LDL calc ser/plasOrdered By: Luiz Celeste on 10-18-2024 Cholesterol in LDL [Mass/Vol] 91 mg/dL [facility] Comment on above: Stahgdjiba=437-049 m g/dL & Higher Micw=552 mg/dL or greater Laboratory - Chemistry and C hemistry - challengeOrdered By: Luiz Celeste on 10-18-2024 AST [Catalytic activity/Vol] 18 U/L <[address] [facility] Lipid Profileon 10-18-2024 CHOL:HDL 2.[address] [facility] Comment on above: Performed By: #### M [id number] #### [facility] [address] [place], [place], [id number] Cholesterol [Mass/Vol] 174 mg/dL Normal <=200 [facility] Comment on above: Result Comment: Chol esterol level, Desirable <200 mg/dL Borderline high cholesterol 200-239 mg/dL High cholesterol >=240 mg/dL Recommendations of the NCEP Adult Treatment Panel for the following risk-cutoff thresholds for the [place] population. Performed By: #### M [id number] #### [facility] [address] [place], [address] Cholesterol in HDL [Mass/Vol] 59 mg/dL Normal [facility] Comment on above: Result Comment: Jennifer onal Cholesterol Education Program (NCEP) guidelines: <40 mg/dL: Low HDL-cholesterol (major risk factor for CHD) >= 60 mg/dL: High HDL-cholesterol (negative risk factor for CHD) HDL-cholesterol is affected by a number of factors, e.g. smoking, exercise, hormones, sex and age. Performed By: #### M [id number] #### [facility] [address] [place], [address] Cholesterol in LDL [Mass/Vol] 91 mg/dL Normal [facility] Comment on above: Result Comment: Bord sfadne=887-205 mg/dL Higher Ersx=814 mg/dL or greater Performed By: #### M [id number] #### [facility] [address] [place], [address] Cholesterol in VLDL [Mass/Vol] 24 mg/dL Normal 5-[address] [facility] Comment on above: Performed By: #### M [id number] #### [facility] [address] [place], [address] Triglyceride [Mass/Vol] 120 mg/dL Normal [facility] Comment on above: Result Comment: The drugs N-Acetylcysteine and Metamizole may falsely depress this assay. Normal range: <150 mg/dL Borderline High: 150-199 mg/dL High: 200-499 mg/dL Very High: >500 mg/dL Performed By: #### M [id number] #### [facility] [address] [place], [address] MCV (mean corpuscular volume ) determinationOrdered By: Luiz Celeste on 10-18-2024 MCV (RBC) [Entitic vol] 90.2 fL 80-94 [facility] Mean corpuscular hemoglobin (MCH) determinationOrdered By: Luiz Celeste 10-18-2024 MCH (RBC) [Entitic mass] 30.8 pg 27.0-32.[address] [facility] Mean corpuscular hemoglobin concentration (MCHC) determinationOrdered By: Luiz Celeste on 10-18-2024 MCHC (RBC) [Mass/Vol] 34.2 g/dL 32-36 [facility] Mean platelet volume determi nationOrdered By: Luiz Celeste 10-18-2024 Platelet mean volume (Bld) [Entitic vol] 9.7 fL 6.2-12.[address] [facility] Monocyte percentageOrdered B y: Luiz Celeste 10-18-2024 Monocytes/100 WBC (Bld) 7.1 % 0-10 [facility] Neutrophil percentageOrdered By: Luiz Celeste on 10-18-2024 Neutrophils/100 WBC (Bld) 72.5 % High 47-[address] [facility] Nucleated red blood cell per centageOrdered By: Luiz Celeste 10-18-2024 Nucleated RBC/100 WBC (Bld) [Ratio] 0 % 0-[address] [facility] Platelet countOrdered By: Tariq Celeste on 10-18-2024 Platelets (Bld) [#/Vol] 260 10*3/uL 150-[address] [facility] Potassium measurement (mass/ volume)Ordered By: Luiz Celeste 10-18-2024 Potassium (Unsp spec) [Mass/Vol] 4.1 mmol/L 3.3-5.[address] [facility] RBC Auto (Bld) [#/Vol]Ordere d By: Luiz Celeste 10-18-2024 RBC (Bld) [#/Vol] 4.90 10*6/uL 4.6-6.[address] [facility] Screening total cholesterol/ high density lipoprotein (HDL) cholesterol ratioOrdered By: Luiz Celeste 10-18-2024 Cholesterol.total/Choles terol in HDL [Mass ratio] 2.94 {ratio} [facility] Serum creatinine measurement (mass/volume)Ordered By: Luiz Celeste on 10-18-2024 Creatinine [Mass/Vol] 1.00 mg/dL 0.70-1.20 [facility] Serum globulin measurementOr dered By: Luiz Celeste on 10-18-2024 Globulin (S) [Mass/Vol] 2.4 g/dL 2.2-4.2 [facility] Serum glucose measurement (m ass/volume)Ordered By: Luiz Celeste 10-18-2024 Glucose [Mass/Vol] 88 mg/dL 70-99 [facility] Serum or plasma alanine driscoll otransferase (ALT) measurementOrdered By: Luiz Celeste 10-18-2024 ALT [Catalytic activity/Vol] 13 U/L <[address] [facility] Serum or plasma albumin erika urement (mass/volume)Ordered By: Luiz Celeste 10-18-2024 Albumin [Mass/Vol] 4.4 g/dL 3.4-4.8 [facility] Serum or plasma albumin/glob ulin mass ratioOrdered By: Luiz Celeste 10-18-2024 Albumin/Globulin [Mass ratio] 1.8 {ratio} 0.9-2.[address] [facility] Serum or plasma alkaline merlin sphatase measurementOrdered By: Luiz Celeste 10-18-2024 ALP [Catalytic activity/Vol] 70 U/L 40-[address] [facility] Serum or plasma calcium erika urement (mass/volume)Ordered By: Luiz Celeste 10-18-2024 Calcium [Mass/Vol] 9.6 mg/dL 7.6-11.0 [facility] Serum or plasma cholesterol in HDL measurement (mass/volume)Ordered By: Luiz Celeste 10-18-2024 Cholesterol in HDL [Mass/Vol] 59 mg/dL >[address] [facility] Comment on above: National Cholesterol Education Program (NCEP) guidelines:<40 mg/dL: Low HDL-cholesterol (major risk factor for CHD)>= 60 mg/dL: High HDL-cholesterol (negative risk factor for CHD)HDL-cholesterol is affected by a number of factors, e.g. smoking, exercise, hormones, sex and age. Serum or plasma cholesterol measurement (mass/volume)Ordered By: Luiz Celeste on 10-18-2024 Cholesterol [Mass/Vol] 174 mg/dL <201 [facility] Comment on above: Cholesterol level, D esirable <200 mg/dLBorderline high cholesterol 200-239 mg/dLHigh cholesterol >=240 mg/dLRecommendations of the NCEP Adult Treatment Panel for the following risk-cutoff thresholds for the [place] population. Serum or plasma urea nitroge n measurement (mass/volume)Ordered By: Luiz Celeste on 10-18-2024 Urea nitrogen [Mass/Vol] 13 mg/dL 4-[address] [facility] Sodium levelOrdered By: Luiz Celeste on 10-18-2024 Sodium [Moles/Vol] 139 mmol/L 133-145 [facility] TSH DL <= 0.005 mIU/L QnOrde red By: Luiz Celeste on 10-18-2024 TSH Qn 2.140 uIU/mL 0.300-4.[address] [facility] Total proteinOrdered By: Luiz Celeste on 10-18-2024 Protein [Mass/Vol] 6.7 g/dL 5.9-8.4 [facility] Triglycerides measurementOrd ered By: Luiz Celeste on 10-18-2024 Triglyceride [Mass/Vol] 120 mg/dL <199 [facility] Comment on above: The drugs N-Acetylcy steine and Metamizole may falsely depress this assay. Normal range: <150 mg/dLBorderline High: 150-199 mg/dLHigh: 200-499 mg/dLVery High: >500 mg/dL Vitamin D,25 Hydroxyon 10-18 Vitamin D 25-OH 40.7 ng/mL Normal 30-[address] [facility] Comment on above: Result Comment: Rafaela min D Status Deficiency: <20 ng/mL (50nmol/L) Insufficiency: 20-30 ng/mL (50-75 nmol/L) Sufficiency: 30-100 ng/mL (75-250 nmol/L) Toxicity: >100 ng/mL (>250 nmol/L) Performed By: #### M 100.083 #### [facility] Laboratory [facility] [address] [place], [place], [id number] White blood cell (WBC) count Ordered By: Luiz Celeste on 10-18-2024 WBC (Bld) [#/Vol] 14.1 10*3/uL High 4.4-11.[address] [facility] Influenza virus A and B and SARS-CoV-2 (COVID-19) and Respiratory syncytial virus RNAOrdered By: Luiz Booker on 10-12-2024 SARS-CoV-2 (COVID-19) RNA ANTONIO+probe Ql (Unsp spec) [facility] M100.678on 10-12-2024 M100.678 Pending SARS-CoV-2 (COVID 19) Negative INFLUENZA A Negative INFLUENZA B Negative RSV PCR Negative Normal [facility] Comment on above: Performed By: #### M 100.678 #### [facility] Laboratory [address] [facility] [place], [address] Influenza virus A and B and SARS-CoV-2 (COVID-19) and Respiratory syncytial virus RNAOrdered By: Luiz Booker on 07-02-2024 SARS-CoV-2 (COVID-19) RNA ANTONIO+probe Ql (Unsp spec) [facility] M100.678on 07-02-2024 M100.678 Pending SARS-CoV-2 (COVID 19) Negative INFLUENZA A Negative INFLUENZA B Negative RSV PCR Negative Normal [facility] Comment on above: Performed By: #### M 100.678 #### [facility] [address] [place], [address] CBC W/Diff, Automatedon 10-2 Absolute Lymph 1.68 X10 3/uL Normal 0.83-4.[address] [facility] Comment on above: Performed By: #### L 100.0100, L500.4050, L501.9520, L506.1000, L500.4100 #### [facility] [address] [place], [address] Absolute Neut 6.7 X10 3/uL Normal 2.0-7.[address] [facility] Comment on above: Performed By: #### L 100.0100, L500.4050, L501.9520, L506.1000, L500.4100 #### [facility] [address] [place], [address] Basophils/100 WBC (Bld) 0.4 % Normal 0-1 [facility] Comment on above: Performed By: #### L 100.0100, L500.4050, L501.9520, L506.1000, L500.4100 #### [facility] [address] [place], [address] Eosinophils/100 WBC (Bld) 1.7 % Normal 0-[address] [facility] Comment on above: Performed By: #### L 100.0100, L500.4050, L501.9520, L506.1000, L500.4100 #### [facility] [address] [place], [address] Erythrocyte distribution width (RBC) [Ratio] 14.9 % High 11.6-14.[address] [facility] Comment on above: Performed By: #### L 100.0100, L500.4050, L501.9520, L506.1000, L500.4100 #### [facility] [address] [place], [address] Hematocrit (Bld) [Volume fraction] 44.5 % Normal 40-[address] [facility] Comment on above: Performed By: #### L 100.0100, L500.4050, L501.9520, L506.1000, L500.4100 #### [facility] [address] [place], [address] Hemoglobin (Bld) [Mass/Vol] 14.5 g/dL Normal 13.0-16.[address] [facility] Comment on above: Performed By: #### L 100.0100, L500.4050, L501.9520, L506.1000, L500.4100 #### [facility] [address] [place], [address] IG% 0.500 Normal 0.0-0.[address] [facility] Comment on above: Result Comment: IG% - Immature Granulocytes (promyelocytes, myelocytes and metamyelocytes) > 1% indicates that a LEFT SHIFT is Present. Performed By: #### L 100.0100, L500.4050, L501.9520, L506.1000, L500.4100 #### [facility] [address] [place], [address] Lymphocytes/100 WBC (Bld) 17.9 % Low 19-[address] [facility] Comment on above: Performed By: #### L 100.0100, L500.4050, L501.9520, L506.1000, L500.4100 #### [facility] [address] [place], [address] MCH (RBC) [Entitic mass] 30.1 pg Normal 27.0-32.[address] [facility] Comment on above: Performed By: #### L 100.0100, L500.4050, L501.9520, L506.1000, L500.4100 #### [facility] [address] [place], [address] MCHC (RBC) [Mass/Vol] 32.6 g/dL Normal 32-36 [facility] Comment on above: Performed By: #### L 100.0100, L500.4050, L501.9520, L506.1000, L500.4100 #### [facility] [address] [place], [address] MCV (RBC) [Entitic vol] 92.5 fL Normal 80-94 [facility] Comment on above: Performed By: #### L 100.0100, L500.4050, L501.9520, L506.1000, L500.4100 #### [facility] [address] [place], [address] Monocytes/100 WBC (Bld) 7.5 % Normal 0-10 [facility] Comment on above: Performed By: #### L 100.0100, L500.4050, L501.9520, L506.1000, L500.4100 #### [facility] [address] [place], [address] Neutrophils/100 WBC (Bld) 72.0 % High 47-[address] [facility] Comment on above: Performed By: #### L 100.0100, L500.4050, L501.9520, L506.1000, L500.4100 #### [facility] [address] [place], [address] Nucleated RBC (Bld) [#/Vol] 0 10*3/uL Normal 0-[address] [facility] Comment on above: Performed By: #### L 100.0100, L500.4050, L501.9520, L506.1000, L500.4100 #### [facility] [address] [place], [address] Platelet mean volume (Bld) [Entitic vol] 9.7 fL Normal 6.2-12.[address] [facility] Comment on above: Performed By: #### L 100.0100, L500.4050, L501.9520, L506.1000, L500.4100 #### [facility] [address] [place], [address] Platelets (Bld) [#/Vol] 232 10*3/uL Normal 150-[address] [facility] Comment on above: Performed By: #### L 100.0100, L500.4050, L501.9520, L506.1000, L500.4100 #### [facility] [address] [place], [address] RBC (Bld) [#/Vol] 4.81 10*6/uL Normal 4.6-6.[address] [facility] Comment on above: Performed By: #### L 100.0100, L500.4050, L501.9520, L506.1000, L500.4100 #### [facility] [address] [place], [address] RDW SD 51.0 fl High 35.1-43.[address] [facility] Comment on above: Performed By: #### L 100.0100, L500.4050, L501.9520, L506.1000, L500.4100 #### [facility] [address] [place], [address] WBC (Bld) [#/Vol] 9.4 10*3/uL Normal 4.4-11.0 [facility] Comment on above: Performed By: #### L 100.0100, L500.4050, L501.9520, L506.1000, L500.4100 #### [facility] [address] [place], [address] [facility] Metabolic [facility] 04-09-2024 Albumin [Mass/Vol] 3.7 g/dL Normal 3.2-5.0 [facility] Comment on above: Performed By: #### L 100.0100, L500.4050, L501.9520, L506.1000, L500.4100 #### [facility] [address] [place], [address] Albumin/Globulin [Mass ratio] 1.2 {ratio} Normal 0.9-2.[address] [facility] Comment on above: Performed By: #### L 100.0100, L500.4050, L501.9520, L506.1000, L500.4100 #### [facility] [address] [place], [address] ALK P 72 U/L Normal 45-[address] [facility] Comment on above: Performed By: #### L 100.0100, L500.4050, L501.9520, L506.1000, L500.4100 #### [facility] [address] [place], [address] ALT [Catalytic activity/Vol] 21 U/L Normal 16-[address] [facility] Comment on above: Performed By: #### L 100.0100, L500.4050, L501.9520, L506.1000, L500.4100 #### [facility] [address] [place], [address] AST [Catalytic activity/Vol] 11 U/L Low 15-[address] [facility] Comment on above: Performed By: #### L 100.0100, L500.4050, L501.9520, L506.1000, L500.4100 #### [facility] [address] [place], [address] Bilirubin [Mass/Vol] 0.60 mg/dL Normal 0.20-1.00 [facility] Comment on above: Result Comment: For patients on eltrombopag therapy, use of Dimension [place] TBIL is not recommended. Performed By: #### L 100.0100, L500.4050, L501.9520, L506.1000, L500.4100 #### [facility] [address] [place], [address] BUN/CRE 12.8 RATIO Normal 10-[address] [facility] Comment on above: Performed By: #### L 100.0100, L500.4050, L501.9520, L506.1000, L500.4100 #### [facility] [address] [place], [address] CA,Total 9.1 mg/dL Normal 8.5-10.[address] [facility] Comment on above: Performed By: #### L 100.0100, L500.4050, L501.9520, L506.1000, L500.4100 #### [facility] [address] [place], [address] Chloride [Moles/Vol] 108 mmol/L High 98-107 [facility] Comment on above: Performed By: #### L 100.0100, L500.4050, L501.9520, L506.1000, L500.4100 #### [facility] [address] [place], [address] CO2 [Moles/Vol] 29.0 mmol/L Normal 21.0-32.[address] [facility] Comment on above: Performed By: #### L 100.0100, L500.4050, L501.9520, L506.1000, L500.4100 #### [facility] [address] [place], [address] Creatinine [Mass/Vol] 0.94 mg/dL Normal 0.70-1.30 [facility] Comment on above: Result Comment: The validity of the calculated GFR GFRAA in patients over 70 years has not been determined. Clinical correlation is essential. Performed By: #### L 100.0100, L500.4050, L501.9520, L506.1000, L500.4100 #### [facility] [address] [place], [address] EST GFR - AA 102 mL/min Normal >[address] [facility] Comment on above: Result Comment: Afri can Georgian GFR Calc Performed By: #### L 100.0100, L500.4050, L501.9520, L506.1000, L500.4100 #### [facility] [address] [place], [address] GAP 1 Low 5-[address] [facility] Comment on above: Performed By: #### L 100.0100, L500.4050, L501.9520, L506.1000, L500.4100 #### [facility] [address] [place], [address] GFR/1.73 sq M.predicted among non-blacks MDRD (S/P/Bld) [Vol rate/Area] 84 mL/min/{1.73_m2} Normal >[address] [facility] Comment on above: Result Comment: Non- GFR Calc Performed By: #### L 100.0100, L500.4050, L501.9520, L506.1000, L500.4100 #### [facility] [address] [place], [address] Globulin (S) [Mass/Vol] 3.2 g/dL Normal 2.2-4.2 [facility] Comment on above: Performed By: #### L 100.0100, L500.4050, L501.9520, L506.1000, L500.4100 #### [facility] [address] [place], [address] Glucose [Mass/Vol] 94 mg/dL Normal 74-106 [facility] Comment on above: Performed By: #### L 100.0100, L500.4050, L501.9520, L506.1000, L500.4100 #### [facility] [address] [place], [address] Potassium [Moles/Vol] 4.2 mmol/L Normal 3.5-5.1 [facility] Comment on above: Performed By: #### L 100.0100, L500.4050, L501.9520, L506.1000, L500.4100 #### [facility] [address] [place], [address] Sodium [Moles/Vol] 138 mmol/L Normal 136-145 [facility] Comment on above: Performed By: #### L 100.0100, L500.4050, L501.9520, L506.1000, L500.4100 #### [facility] [address] [place], [address] T PROT 6.9 g/dL Normal 6.4-8.[address] [facility] Comment on above: Performed By: #### L 100.0100, L500.4050, L501.9520, L506.1000, L500.4100 #### [facility] [address] [place], [address] Urea nitrogen [Mass/Vol] 12 mg/dL Normal 7-[address] [facility] Comment on above: Performed By: #### L 100.0100, L500.4050, L501.9520, L506.1000, L500.4100 #### [facility] [address] [place], [address] Lipid Profileon 04-09-2024 Cholesterol [Mass/Vol] 193 mg/dL Normal 200 [facility] Comment on above: Result Comment: <200 mg/dL Desirable 200-240 mg/dL Borderline >240 mg/dL High Risk Performed By: #### L 100.0100, L500.4050, L501.9520, L506.1000, L500.4100 #### [facility] [address] [place], [address] Cholesterol in HDL [Mass/Vol] 74 mg/dL Normal [facility] Comment on above: Result Comment: The drugs N-Acetylcysteine and Metamizole may falsely depress this assay. Reference Range HDL <40 mg/dL Low HDL Cholesterol HDL >or= 60 mg/dL High HDL Cholesterol Performed By: #### L 100.0100, L500.4050, L501.9520, L506.1000, L500.4100 #### [facility] [address] [place], [address] Cholesterol in LDL [Mass/Vol] 107 mg/dL Normal 0-[address] [facility] Comment on above: Performed By: #### L 100.0100, L500.4050, L501.9520, L506.1000, L500.4100 #### [facility] [address] [place], [address] Cholesterol in VLDL [Mass/Vol] 12 mg/dL Normal 5-[address] [facility] Comment on above: Performed By: #### L 100.0100, L500.4050, L501.9520, L506.1000, L500.4100 #### [facility] [address] [place], [address] Triglyceride [Mass/Vol] 58 mg/dL Normal [facility] Comment on above: Result Comment: The drugs N-Acetylcysteine and Metamizole may falsely depress this assay. Serum Triglycerides Reference Interval Normal <150 mg/dL Borderline high 150 - 199 mg/dL High 200 - 499 mg/dL Very High > or = 500 mg/dL Performed By: #### L 100.0100, L500.4050, L501.9520, L506.1000, L500.4100 #### [facility] [address] [place], [address] Thyroid Stim Hormone (TSH)on 04-09-2024 TSH 1.680 uIU/mL Normal 0.358-3.[address] [facility] Comment on above: Performed By: #### L 100.0100, L500.4050, L501.9520, L506.1000, L500.4100 #### [facility] [address] [place], [address] Vitamin D,25 Hydroxyon 04-09 Vitamin D 25-OH 32.9 ng/mL Normal [facility] Comment on above: Result Comment: Rafaela min D 25(OH) Status Range Deficiency <20 ng/mL (50nmol/L) Insufficiency 20 - 30 ng/mL (50 - 75 nmol/L) Sufficiency 30 - 100 ng/mL (75 - 250 nmol/L) Toxicity >100 ng/mL (>250 nmol/L) Performed By: #### L 100.0100, L500.4050, L501.9520, L506.1000, L500.4100 #### [facility] [address] [place], [address] M100.678on 03-29-2024 M100.678 Pending SARS-CoV-2 (COVID 19) Negative INFLUENZA A Negative INFLUENZA B Negative RSV PCR Negative Normal [facility] Comment on above: Performed By: #### M 100.678 #### [facility] [address] [place], [address] Chest PA and Lateralon 03-08 Chest PA and Lateral [facility] Services [address] [place] [address] Chest PA and Lateral MR#: [id number] Acct: [id number] Name: SAVANNAH CROOKS Rep #: [id number] : 1950 M 73 From: Ramiro Murray DO PCP: Dr. Luiz Celeste MD Status: REG CLI Study: Chest PA and Lateral Date of Exam: 03/08/24 Exam# [id number] Ordering Dr: Luiz Celeste MD [id number] INDICATION: WHEEZING EXAMINATION/TECHNIQUE : X-RAY - XR Chest 2 Views COMPARISON: __ FINDINGS: LINES/DEVICES: None. LUNGS: No consolidation, edema or effusion. No pneumothorax. MEDIASTINUM AND CARDIOVASCULAR STRUCTURES: Cardiac silhouette not enlarged. Central airways and mediastinal contour are unremarkable. BONES AND SOFT TISSUES: Unremarkable. RAD/Chest PA and Lateral IMPRESSION: No radiographic evidence of acute cardiopulmonary disease. Electronically Signed: Ramiro Murray DO at 21:47 EDT , CC: Dr. Luiz Celeste MD Safety Attendant: Signed Normal [facility] M100.678on 03-08-2024 SARS-CoV-2 (COVID-19) Ab IA Ql FLUABV+SARS-CoV-2+RSV Pnl Resp ANTONIO+probe Copy of report sent to Infection Control Printer [id number] 03/08/24 1904 MDREXLER. FLUABV+SARS-CoV-2+RSV Pnl Resp ANTONIO+probe SARS-CoV-2 (COVID 19) A Positive A INFLUENZA A Negative INFLUENZA B Negative RSV PCR Negative SARS-CoV-2 (COVID 19 PCR) Normal [facility] Comment on above: Performed By: #### M 100.678 #### [facility] [address] [place], [place], [address] PSA,Total- Diagnosticon 01-14 PSA, DIAGNOSTIC 7.18 ng/mL High 0.0-4.[address] [facility] Comment on above: Result Comment: This test was performed using the TPSA assay method for the [employer] chemistry system. Values obtained with different assay methods cannot be used interchangably. When changing PSA assays in the course of monitoring a patient, additional sequential testing should be carried out to confirm baseline values. Performed By: #### L 501.9940 #### [facility] [address] [place], [place], [address] 12 Lead EKGon 01-16-2024 12 Lead EKG [facility] Services [address] [place] [address] 12 Lead EKG 01/16/24 0755 MR#: [id number] Acct: [id number] Name: SAVANNAH CROOKS Rep #: [id number] : 1950 73 From: Yosef Delong MD Attending Dr: Dr. Los Santos MD Status: DEP [facility] Ordering Dr: Jaron Randle MD Date: 01/16/24 Location: [facility] Sex: M C Admitted: Test Reason : PREOP Blood Pressure : / mmHG Vent. Rate : 058 BPM Atrial Rate : 058 BPM P-R Int : 164 ms QRS Dur : 104 ms QT Int : 404 ms P-R-T Axes : 071 045 047 degrees QTc Int : 396 ms Sinus bradycardia Possible Left atrial enlargement Borderline ECG Confirmed by ADRIAN REYNA, YOSEF ([id number]), fashion editor CARLOS ALBERTO NIETO ([id number]) on 01/16/2024 11:32:06 AM Referred By: Los Santos Confirmed By:YOSEF DELONG MD 01/16/24 1132 Date Yosef Delong MD CC: Dr. Jaron Randle MD; Dr. Los Santos MD; Dr. Luiz Celeste MD Signed Normal [facility] Discharge Instructionon Discharge Instruction [facility] Medical Records Department [address] [place] [address] Instructions for Home/Discharge Instructions 01/16/24 09 MR#: [id number] Acct: [id number] Name: SAVANNAH CROOKS Rep #: [id number] : 1950 73 From: Los Santos MD PCP: Dr. Luiz Celeste MD Status:REG [facility] Discharge Instructions Procedure Urology Diet Discharge Diet: No restrictions Activity Discharge Activity: Return to Normal Activity and May Not Drive (while taking narcotic pain medications.) Dressing / Incision Call your doctor if you observe: Fever of 101 or Higher Follow Up Care Please Follow Up With: Los Santos MD When: Call [phone] for an appointment Test Results: Test results from this visit will be discussed in further detail at your follow-up appointment, if applicable. Discharge Plan Admission Primary Reason for Your Visit: bladder biopsy and fulguration Attending Provider: Los Santos Primary Care Provider: Luiz Celeste Chi Instructions Print Language: Costa Rican Discharge Orders/Prescriptions Prescriptions: New ciprofloxacin HCl [Cipro] 500 mg tablet 500 mg PO BID Qty: 6 0RF ibuprofen 600 mg tablet 600 mg PO Q6H PRN (Reason: fever or pain) Qty: 20 0RF No Action pravastatin 40 mg Tablet 40 mg PO QHS psyllium Packet 1 packet PO DAILY Rx Instructions: mix into at least 8 oz of water or juice before administering finasteride 5 mg tablet 5 mg PO DAILY Referrals / Follow Up: Los Santos MD [Med Staff - Active Staff] - Luiz Celeste Chi, MD [Primary Care Provider] - Disposition Disposition (needs filled in before D/C Order can be placed): Home, Self Care 01/16/24923 Los Santos MD CC: Dr. Luiz Celeste MD Signed [facility] MR/POSTOP.ANE 01-16-2024 MR/POSTOP.[facility] Medical Records Department [address] [place] [address] Anesthesia Postop Eval I 01/16/24 1013 MR#: [id number] Acct: [id number] Name: SAVANNAH CROOKS Rep #: [id number] : 1950 73 From: Laura Tamayo CRNA PCP: Dr. Luiz Celeste MD Status:REG [facility] Y Race: C Location: [place] [address] Anesthesia: Postop Eval I Current Vital Signs Temperature: 97 F Pulse Rate: 64 Blood Pressure: 112/78 Respiratory Rate: 16 Pulse Ox: 98 Oxygen Delivery Method: Room Air Assessment Airway patent: Yes Spontaneous unlabored respirations: Yes Mental status: Awake and Calm nausea: No Vomiting: No Anesthesia Complication: No Fluid Hydration Crystalloid volume administer (ml): 600 Total IV fluid infused: 600 Progress Note Anesthesia document: Postop Eval 1 completed: Yes 01/16/24 1013 Date Laura Tamayo CRNA Cosigner Signature: Date CC: Signed [facility] [id number] 01-16-2024 MR/POST[address] Medical Records Department [address] [place] [address] Anesthesia Postop Eval II 01/16/24 1100 MR#: [id number] Acct: [id number] Name: SAVANNAH CROOKS Rep #: [id number] : 1950 73 From: Jaron Randle MD PCP: Dr. Luiz Celeste MD Status:DEP [facility] Y Race: C Location: [facility] Anesthesia Postop Eval I Sum Postop Eval Completion status Anesthesia document: Postop Eval 1 completed: Yes Anesthesia Postop Eval I Summary Anesthesia Postop Eval I Summary: Anesthesia Postop Eval I: Assessment Summary Airway patent Yes 01/16/24 10:13 COMPUTER INSTALLER.SKOBY Spontaneous unlabored Yes 01/16/24 10:13 COMPUTER INSTALLER.SKOBY respirations Mental status Awake,Calm 01/16/24 10:13 COMPUTER INSTALLER.SKOBY nausea No 01/16/24 10:13 COMPUTER INSTALLER.SKOBY Vomiting No 01/16/24 10:13 COMPUTER INSTALLER.SKOBY Anesthesia Postop Eval I: Fluid Summary Crystalloid volume administer 600 01/16/24 10:13 COMPUTER INSTALLER.SKOBY (ml) Colloids volume administered ( ml) Blood Product volume administered (ml) Total IV fluid infused 600 01/16/24 10:13 COMPUTER INSTALLER.SKOBY Anesthesia Postop Eval I: Summary Notes Anesthesia Complication No 01/16/24 10:13 COMPUTER INSTALLER.SKOBY Anesthesia Complication Comment: Post-operative progress note Anesthesia: Postop Eval II Evaluation Mental status: Awake Pain Level: 0 nausea: No Vomiting: No Complications Anesthesia Complication: No 01/16/24 1101 Date Jaron Randle MD Cosigner Signature: Date CC: Signed Normal [facility] Operative Reporton 4 Operative Report [facility] Records Department [address] [place] [address] Operative Report 01/16/24 0959 MR#: [id number] Acct: [id number] Name: SAVANNAH CROOKS Rep #: [id number] : 1950 73 From: Los Santos MD PCP: Dr. Luiz Celeste MD Status:REG [facility] Location: [place] [address] Report of Operation Date of Procedure: 01/16/24 Pre-Operative Diagnosis: Bladder cancer tumors Post-Operative Diagnosis: The same Surgery/Procedure Performed:: Cystoscopy bladder biopsies of tumor and cauterization of tumors Description of Surgical Findings:: 73-year-old male was taken back to the operating room after smooth induction of anesthesia he was placed in dorsolithotomy position, the penis and testicles were prepped and draped in usual sterile fashion went into the bladder with a 21 [place]ian rigid cystourethroscope to use both white light and bluelight technology and identified 2 tumors in the back of the bladder 1 is about 1 cm in size and the other tumor was half a centimeter in size I biopsy the larger tumor and sent this off as a specimen and then I cauterized both the sites completely with the Bugbee electrode using 30 W of energy to cauterize the sites I then extensively look around the rest of the bladder I do not see any other lesions or tumors within the bladder I then drained the bladder patient's anesthetic was reversed taken back to PACU in good condition plan to see him back in a few weeks to review the biopsies and we will probably recommend we do BCG therapy to prevent more tumors. Surgeon: Los Santos Type of Anesthesia: General Drains: none Estimated Blood Loss (mL): 0 Admit VTE Documentation VTE Present on Admission: No VTE Mechan Device Prophylaxis: SCD's VTE Pharm Prophylaxis ordered?: No 01/16/24 1000 Cosigner Signature (if applicable): CC: Dr. Los Santos MD; Dr. Luiz Celeste MD Signed Normal [facility] Surgery Specimen Level Von 0 01-16-2024 Surgery Specimen Level V ------ -------- Patient Age/Sex Location Account Attending Physician -------- SAVANNAH CROOKS 73/M [facility] [id number] Dr. Los Santos MD -------- Specimen: [id number] Received: 01/16/24 Status: JC Mar Num: [id number] Spec Type: TURB Subm Dr: Dr. Los Santos MD HEADER OPERATION: Biopsy, fulguration, bladder tumor PRE-OP DIAGNOSIS: Bladder tumor TISSUE SUBMITTED: Bladder tumor -------- MICROSCOPIC DIAGNOSIS Bladder tumor, biopsy: Noninvasive papillary urothelial carcinoma. See cancer summary in the comment section. VIVI/mr 01/19/2024 COMMENT BLADDER CANCER SUMMARY: Procedure - biopsy Tumor site - Not identified Histologic type - Papillary urothelial carcinoma, noninvasive Associated epithelial lesions - none identified. 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 Case has been reviewed in consultation with Dr. Rojas who concurs with the above diagnosis. IDC:AM MICROSCOPIC DESCRIPTION Slides are reviewed. GROSS DESCRIPTION Received in fixative is one container labeled with the patient's name and designated Bladder tumor. The specimen consists of one irregular fragment of light hernandez soft tissue that measures 0.2 x 0.2 x 0.1 cm. The specimen is totally submitted in one cassette. VIVI/ 01/16/2024 TC:0 -------- Patient Age/Sex Location Account Attending Physician -------- SAVANNAH CROOKS 73/M [facility] [id number] Dr. Los Santos MD -------- CPT:23008 -------- Patient Age/Sex Location Account Attending Physician -------- SAVANNAH CROOKS 73/M [facility] [id number] Dr. Los Santos MD -------- Signed (signature on file) Dr. Haile Kaur MD 01/19/24 1152 -------- Normal [facility] Comment on above: Performed By: #### M [id number] #### [facility] Laboratory [facility] [place], [address] Absolute lymphocyte countOrd ered By: Luiz Celeste on 10-17-2023 Lymphocytes Auto (Unsp spec) [#/Vol] 1.32 10*3/uL 0.83-4.[address] [facility] Automated lymphocyte count a s percentage of total leukocytesOrdered By: Luiz Celeste on 10-17-2023 Lymphocytes/100 WBC Auto (Unsp spec) 21.7 % 19-[address] [facility] Basophil percentageOrdered B y: Luiz Celeste on 10-17-2023 Basophils/100 WBC (Bld) 0.7 % 0-1 [facility] Bilirubin [Mass/Vol] 0.70 mg/dL 0.20-1.00 [facility] Comment on above: For patients on eltr ombopag therapy, use of Dimension [place] TBIL is not recommended. Chloride [Moles/Vol] 109 mmol/L 98-107 [facility] Cholesterol [Mass/Vol] 197 mg/dL <200 [facility] Comment on above: <200 mg/dL Desirable 200-240 mg/dL Borderline >240 mg/dL High Risk Eosinophils/100 WBC (Bld) 0.8 % 0-[address] [facility] Glucose [Mass/Vol] 91 mg/dL 74-106 [facility] Hemoglobin (Bld) [Mass/Vol] 14.6 g/dL 13.0-16.[address] [facility] Monocytes/100 WBC (Bld) 9.2 % 0-10 [facility] Neutrophils (Bld) [#/Vol] 4.1 10*3/uL 2.0-7.[address] [facility] Neutrophils/100 WBC (Bld) 67.3 % 47-[address] [facility] Potassium [Moles/Vol] 4.1 mmol/L 3.5-5.1 [facility] Protein [Mass/Vol] 6.8 g/dL 6.4-8.2 [facility] Sodium [Moles/Vol] 138 mmol/L 136-145 [facility] Triglyceride [Mass/Vol] 90 mg/dL <199 [facility] Comment on above: The drugs N-Acetylcy steine and Metamizole may falsely depress this assay.Serum Triglycerides Reference Interval Normal <150 mg/dL Borderline high 150 - 199 mg/dL High 200 - 499 mg/dL Very High > or = 500 mg/dL WBC (Bld) [#/Vol] 6.1 10*3/uL 4.4-11.0 [facility] Determination of erythrocyte mean corpuscular volume (MCV)Ordered By: Luiz Celeste on 10-17-2023 MCV (RBC) [Entitic vol] 90.8 fL 80-94 [facility] Erythrocyte distribution wid th ratioOrdered By: Luiz Booker on 10-17-2023 Erythrocyte distribution width (RBC) [Ratio] 13.6 % 11.6-14.[address] [facility] Erythrocyte distribution wid th standard deviationOrdered By: [facility] on 10-17-2023 Erythrocyte distribution width (RBC) [Entitic vol] 45.7 fL 35.1-43.[address] [facility] Hematocrit Auto (Bld) [Volum e fraction][facility] 10-17-2023 Hematocrit (Bld) [Volume fraction] 44.2 % 40-[address] [facility] Immature granulocytes/100 WB C Auto (Bld)Ordered By: [facility] on 10-17-2023 Immature granulocytes/100 WBC (Bld) 0.300 % 0.0-0.[address] [facility] Comment on above: IG% - Immature Granu locytes (promyelocytes, myelocytes and metamyelocytes) > 1% indicates that a LEFT SHIFT is Present. Laboratory - Chemistry and C hemistry - challengeOrdered By: [facility] 10-17-2023 Albumin/Globulin [Mass ratio] 1.2 {ratio} 0.9-2.[address] [facility] ALP [Catalytic activity/Vol] 72 U/L 45-[address] [facility] ALT [Catalytic activity/Vol] 22 U/L 16-[address] [facility] Cholesterol in HDL [Mass/Vol] 44 mg/dL >[address] [facility] Comment on above: The drugs N-Acetylcy steine and Metamizole may falsely depress this assay. Reference Range HDL <40 mg/dL Low HDL Cholesterol HDL >or= 60 mg/dL High HDL Cholesterol Cholesterol in LDL [Mass/Vol] 135 mg/dL 0-[address] [facility] CO2 [Moles/Vol] 25.0 mmol/L 21.0-32.[address] [facility] Globulin (S) [Mass/Vol] 3.1 g/dL 2.2-4.2 [facility] Urea nitrogen/Creatinine [Mass ratio] 14.9 mg/mg 10-[address] [facility] Laboratory - Hematology and Cell countsOrdered By: Luiz Booker 10-17-2023 MCH (RBC) [Entitic mass] 30.0 pg 27.0-32.[address] [facility] MCHC (RBC) [Mass/Vol] 33.0 g/dL 32-36 [facility] Nucleated RBC/100 WBC (Bld) [Ratio] 0 % 0-[address] [facility] Platelet mean volume (Bld) [Entitic vol] 10.8 fL 6.2-12.[address] [facility] Platelets (Bld) [#/Vol] 213 10*3/uL 150-[address] [facility] No Panel InformationOrdered By: Luiz Celeste on 10-17-2023 Estimated GFR (MDRD) Amer 111 mL/min >[address] [facility] Comment on above: GFR Calc Estimated GFR (MDRD) Non-Af Amer 91 mL/min >[address] [facility] Comment on above: Non- GFR Calc Vitamin D 25-Hydroxy 41.3 ng/mL [facility] Comment on above: Vitamin D 25(OH) Sta tus Range Deficiency <20 ng/mL (50nmol/L) Insufficiency 20 - 30 ng/mL (50 - 75 nmol/L) Sufficiency 30 - 100 ng/mL (75 - 250 nmol/L) Toxicity >100 ng/mL (>250 nmol/L) VLDL Cholesterol 18 mg/dL 5-[address] [facility] RBC Auto (Bld) [#/Vol]Ordere d By: Luiz Celeste on 10-17-2023 RBC (Bld) [#/Vol] 4.87 10*6/uL 4.6-6.2 [facility] Serum or plasma calcium erika urement (mass/volume)Ordered By: Luiz Celeste on 10-17-2023 Calcium [Mass/Vol] 9.3 mg/dL 8.5-10.1 [facility] Serum or plasma creatinine m easurement (mass/volume)Ordered By: Luiz Celeste on 10-17-2023 Creatinine [Mass/Vol] 0.87 mg/dL 0.70-1.30 [facility] Comment on above: The validity of the calculated GFR & GFRAA in patients over 70 years has not been determined. Clinical correlation is essential. Serum or plasma thyroid stim ulating hormone (TSH) measurement (units/volume)Ordered By: Luiz Celeste on 10-17-2023 TSH Qn 1.87 uIU/mL 0.358-3.[address] [facility] Serum or plasma urea nitroge n measurement (mass/volume)Ordered By: Luiz Celeste on 10-17-2023 Urea nitrogen [Mass/Vol] 13 mg/dL 7-[address] [facility] Thin prep Papanicolaou smear with manual screeningOrdered By: Luiz Celeste on 10-17-2023 Thin prep Papanicolaou smear with manual screening 3.7 g/dL 3.2-5.[address] [facility] Thin prep Papanicolaou smear with manual screening 15 U/L 15-[address] [facility] Thin prep Papanicolaou smear with manual screening 4 5-[address] [facility] Absolute lymphocyte countOrd ered By: Luiz Celeste on 04-04-2023 Lymphocytes Auto (Unsp spec) [#/Vol] 1.42 10*3/uL 0.83-4.[address] [facility] Basophil percentageOrdered B y: Luiz Celeste on 04-04-2023 Basophils/100 WBC (Bld) 0.4 % 0-1 [facility] Bilirubin [Mass/Vol] 0.70 mg/dL 0.20-1.00 [facility] Comment on above: For patients on eltr ombopag therapy, use of Dimension [place] TBIL is not recommended. Chloride [Moles/Vol] 109 mmol/L 98-107 [facility] Eosinophils/100 WBC (Bld) 1.2 % 0-[address] [facility] Glucose [Mass/Vol] 101 mg/dL 74-106 [facility] Comment on above: Fasting Glucose resu lt from 100 to 125 mg/dL suggests IMPAIRED HOMEOSTASIS per A.D.A. criteria. Neutrophils (Bld) [#/Vol] 4.7 10*3/uL 2.0-7.[address] [facility] Neutrophils/100 WBC (Bld) 67.5 % 47-[address] [facility] Potassium [Moles/Vol] 5.0 mmol/L 3.5-5.1 [facility] Protein [Mass/Vol] 7.2 g/dL 6.4-8.2 [facility] Sodium [Moles/Vol] 142 mmol/L 136-145 [facility] WBC (Bld) [#/Vol] 6.9 10*3/uL 4.4-11.0 [facility] Blood erythrocytes count (nu mber/volume)Ordered By: Luiz Celeste on 04-04-2023 RBC (Bld) [#/Vol] 5.14 10*6/uL 4.6-6.[address] [facility] Blood hemoglobin measurement (mass/volume)Ordered By: Luiz Celeste on 04-04-2023 Hemoglobin (Bld) [Mass/Vol] 15.3 g/dL 13.0-16.[address] [facility] Blood lymphocytes/100 leukoc ytesOrdered By: Luiz Celeste on 04-04-2023 Lymphocytes/100 WBC (Bld) 20.5 % 19-[address] [facility] Blood monocytes/100 leukocyt esOrdered By: [facility] on 04-04-2023 Monocytes/100 WBC (Bld) 10.0 % 0-10 [facility] Blood platelet mean volumeOr dered By: Luiz Celeste on 04-04-2023 Platelet mean volume (Bld) [Entitic vol] 10.2 fL 6.2-12.[address] [facility] Determination of erythrocyte mean corpuscular volume (MCV)Ordered By: Luiz Celeste on 04-04-2023 MCV (RBC) [Entitic vol] 93.2 fL 80-94 [facility] Hematocrit Auto (Bld) [Volum e fraction]Ordered By: Luiz Booker on 04-04-2023 Hematocrit (Bld) [Volume fraction] 47.9 % 40-[address] [facility] Laboratory - Chemistry and C hemistry - challengeOrdered By: Luiz Celeste on 04-04-2023 ALP [Catalytic activity/Vol] 76 U/L 45-[address] [facility] ALT [Catalytic activity/Vol] 24 U/L 16-[address] [facility] CO2 [Moles/Vol] 29.0 mmol/L 21.0-32.[address] [facility] Globulin (S) [Mass/Vol] 3.4 g/dL 2.2-4.2 [facility] Urea nitrogen/Creatinine [Mass ratio] 13.3 mg/mg 04-[address] [facility] Laboratory - Hematology and Cell countsOrdered By: Luiz Celeste on 04-04-2023 Erythrocyte distribution width (RBC) [Entitic vol] 48.5 fL 35.1-43.[address] [facility] Erythrocyte distribution width (RBC) [Ratio] 14.1 % 11.6-14.[address] [facility] Immature granulocytes/100 WBC (Bld) 0.400 % 0.0-0.[address] [facility] Comment on above: IG% - Immature Granu locytes (promyelocytes, myelocytes and metamyelocytes) > 1% indicates that a LEFT SHIFT is Present. MCH (RBC) [Entitic mass] 29.8 pg 27.0-32.[address] [facility] Nucleated RBC/100 WBC (Bld) [Ratio] 0 % 0-[address] [facility] MCHC Auto (RBC) [Mass/Vol]Or dered By: Luiz Celeste on 04-04-2023 MCHC (RBC) [Mass/Vol] 31.9 g/dL 32-36 [facility] No Panel InformationOrdered By: Luiz Celeste on 04-04-2023 Estimated GFR (MDRD) Amer 90 mL/min >[address] [facility] Comment on above: GFR Calc Estimated GFR (MDRD) Non-Af Amer 74 mL/min >[address] [facility] Comment on above: Non- GFR Calc Thyroid Stimulating Hormone (TSH) 1.52 uIU/mL 0.358-3.[address] [facility] Vitamin D 25-Hydroxy 41.2 ng/mL [facility] Comment on above: Vitamin D 25(OH) Sta tus Range Deficiency <20 ng/mL (50nmol/L) Insufficiency 20 - 30 ng/mL (50 - 75 nmol/L) Sufficiency 30 - 100 ng/mL (75 - 250 nmol/L) Toxicity >100 ng/mL (>250 nmol/L) Platelets bldOrdered By: Luiz Celeste on 04-04-2023 Platelets (Bld) [#/Vol] 210 10*3/uL 150-[address] [facility] Serum or plasma albumin erika urement (mass/volume)Ordered By: Luiz Celeste on 04-04-2023 Albumin [Mass/Vol] 3.8 g/dL 3.2-5.0 [facility] Serum or plasma albumin/glob ulin mass ratioOrdered By: Luiz Celeste on 04-04-2023 Albumin/Globulin [Mass ratio] 1.1 {ratio} 0.9-2.[address] [facility] Serum or plasma calcium erika urement (mass/volume)Ordered By: Luiz Celeste on 04-04-2023 Calcium [Mass/Vol] 9.4 mg/dL 8.5-10.1 [facility] Serum or plasma creatinine m easurement (mass/volume)Ordered By: Luiz Celeste on 04-04-2023 Creatinine [Mass/Vol] 1.05 mg/dL 0.70-1.30 [facility] Comment on above: The validity of the calculated GFR & GFRAA in patients over 70 years has not been determined. Clinical correlation is essential. Serum or plasma urea nitroge n measurement (mass/volume)Ordered By: Luiz Celeste on 04-04-2023 Urea nitrogen [Mass/Vol] 14 mg/dL - [facility] Thin prep Papanicolaou smear with manual screeningOrdered By: Luiz Celeste on 04-04-2023 Thin prep Papanicolaou smear with manual screening 13 U/L 15- [facility] Thin prep Papanicolaou smear with manual screening 4 5-[address] [facility] Basophil percentageOrdered B y: Los Santos on 11-08-2022 Basophil percentage < 0.9 mg/dL 0.70-1.30 [facility] No Panel InformationOrdered By: Los Santos on 11-08-2022 Bedside Estimated GFR (eGFR) > 60.0000 mL/min >[address] [facility] Absolute lymphocyte countOrd ered By: Dr. Celeste on 10-01-2022 Lymphocytes Auto (Unsp spec) [#/Vol] 1.56 10*3/uL 0.83-4.[address] [facility] Basophil percentageOrdered B y: Dr. Celeste on 10-01-2022 Basophils/100 WBC (Bld) 0.4 % 0-1 [facility] Bilirubin [Mass/Vol] 0.60 mg/dL 0.20-1.00 [facility] Comment on above: For patients on eltr ombopag therapy, use of Dimension [place] TBIL is not recommended. Chloride [Moles/Vol] 108 mmol/L 98-107 [facility] Eosinophils/100 WBC (Bld) 0.9 % 0-[address] [facility] Glucose [Mass/Vol] 79 mg/dL 74-106 [facility] Neutrophils (Bld) [#/Vol] 5.5 10*3/uL 2.0-7.[address] [facility] Neutrophils/100 WBC (Bld) 70.6 % 47-[address] [facility] Potassium [Moles/Vol] 3.9 mmol/L 3.5-5.1 [facility] Protein [Mass/Vol] 7.0 g/dL 6.4-8.2 [facility] Sodium [Moles/Vol] 139 mmol/L 136-145 [facility] WBC (Bld) [#/Vol] 7.7 10*3/uL 4.4-11.0 [facility] Blood erythrocytes count (nu mber/volume)Ordered By: Dr. Celeste on 10-01-2022 RBC (Bld) [#/Vol] 4.85 10*6/uL 4.6-6.[address] [facility] Blood hemoglobin measurement (mass/volume)Ordered By: Dr. Celeste on 10-01-2022 Hemoglobin (Bld) [Mass/Vol] 14.8 g/dL 13.0-16.[address] [facility] Blood lymphocytes/100 leukoc ytesOrdered By: Dr. Celeste on 10-01-2022 Lymphocytes/100 WBC (Bld) 20.2 % 19-[address] [facility] Blood monocytes/100 leukocyt esOrdered By: Dr. Celeste on 10-01-2022 Monocytes/100 WBC (Bld) 7.6 % 0-10 [facility] Blood platelet mean volumeOr dered By: Dr. Celeste on 10-01-2022 Platelet mean volume (Bld) [Entitic vol] 10.6 fL 6.2-12.[address] [facility] Determination of erythrocyte mean corpuscular volume (MCV)Ordered By: Dr. Celeste on 10-01-2022 MCV (RBC) [Entitic vol] 90.3 fL 80-94 [facility] Hematocrit Auto (Bld) [Volum e fraction]Ordered By: Dr. Celeste on 10-01-2022 Hematocrit (Bld) [Volume fraction] 43.8 % 40-[address] [facility] Laboratory - Chemistry and C hemistry - challengeOrdered By: Dr. Celeste on 10-01-2022 ALP [Catalytic activity/Vol] 73 U/L 45-[address] [facility] ALT [Catalytic activity/Vol] 22 U/L 16-[address] [facility] CO2 [Moles/Vol] 26.0 mmol/L 21.0-32.[address] [facility] Globulin (S) [Mass/Vol] 3.1 g/dL 2.2-4.2 [facility] Urea nitrogen/Creatinine [Mass ratio] 11.0 mg/mg 10-[address] [facility] Laboratory - Hematology and Cell countsOrdered By: Dr. Celeste on 10-01-2022 Erythrocyte distribution width (RBC) [Entitic vol] 46.1 fL 35.1-43.[address] [facility] Erythrocyte distribution width (RBC) [Ratio] 13.8 % 11.6-14.[address] [facility] Immature granulocytes/100 WBC (Bld) 0.300 % 0.0-0.[address] [facility] Comment on above: IG% - Immature Granu locytes (promyelocytes, myelocytes and metamyelocytes) > 1% indicates that a LEFT SHIFT is Present. MCH (RBC) [Entitic mass] 30.5 pg 27.0-32.[address] [facility] Nucleated RBC/100 WBC (Bld) [Ratio] 0 % 0-[address] [facility] MCHC Auto (RBC) [Mass/Vol]Or dered By: Dr. Celeste on 10-01-2022 MCHC (RBC) [Mass/Vol] 33.8 g/dL 32-36 [facility] No Panel InformationOrdered By: Dr. Celeste on 10-01-2022 Estimated GFR (MDRD) Amer 106 mL/min >[address] [facility] Comment on above: GFR Calc Estimated GFR (MDRD) Non-Af Amer 88 mL/min >[address] [facility] Comment on above: Non- GFR Calc Prostate Specific Antigen Screen 8.60 ng/mL 0.00-4.[address] [facility] Comment on above: This test was perfor med using the TPSA assay method for the[employer] chemistry system. Values obtained with differentassay methods cannot be used interchangably.When changing PSA assays in the course of monitoring apatient, additional sequential testing should be carriedout to confirm baseline values. Thyroid Stimulating Hormone (TSH) 2.14 uIU/mL 0.358-3.[address] [facility] Vitamin D 25-Hydroxy 40.1 ng/mL [facility] Comment on above: Vitamin D 25(OH) Sta tus Range Deficiency <20 ng/mL (50nmol/L) Insufficiency 20 - 30 ng/mL (50 - 75 nmol/L) Sufficiency 30 - 100 ng/mL (75 - 250 nmol/L) Toxicity >100 ng/mL (>250 nmol/L) Platelets bldOrdered By: Dr. Celeste on 10-01-2022 Platelets (Bld) [#/Vol] 221 10*3/uL 150-[address] [facility] Serum or plasma albumin erika urement (mass/volume)Ordered By: Dr. Celeste on 10-01-2022 Albumin [Mass/Vol] 3.9 g/dL 3.2-5.0 [facility] Serum or plasma albumin/glob ulin mass ratioOrdered By: Dr. Celeste on 10-01-2022 Albumin/Globulin [Mass ratio] 1.3 {ratio} 0.9-2.[address] [facility] Serum or plasma calcium erika urement (mass/volume)Ordered By: Dr. Celeste on 10-01-2022 Calcium [Mass/Vol] 9.0 mg/dL 8.5-10.1 [facility] Serum or plasma creatinine m easurement (mass/volume)Ordered By: Dr. Celeste on 10-01-2022 Creatinine [Mass/Vol] 0.91 mg/dL 0.70-1.30 [facility] Comment on above: The validity of the calculated GFR & GFRAA in patients over 70 years has not been determined. Clinical correlation is essential. Serum or plasma urea nitroge n measurement (mass/volume)Ordered By: Dr. Celeste on 10-01-2022 Urea nitrogen [Mass/Vol] 10 mg/dL 7-[address] [facility] Thin prep Papanicolaou smear with manual screeningOrdered By: Dr. Celeste on 10-01-2022 Thin prep Papanicolaou smear with manual screening 15 U/L 15-[address] [facility] Thin prep Papanicolaou smear with manual screening 5 5-[address] [facility] Absolute lymphocyte counton 10-11-2022 Lymphocytes Auto (Unsp spec) [#/Vol] 1.61 10*3/uL 0.83-4.[address] [facility] Work Phone: Basophil percentageon 2021 Basophils/100 WBC (Bld) 0.3 % 0-1 [facility] Work Phone: Bilirubin [Mass/Vol] 0.80 mg/dL 0.20-1.00 [facility] Work Phone: Comment on above: For patients on eltr ombopag therapy, use of Dimension [place] TBIL is not recommended. Chloride [Moles/Vol] 107 mmol/L 98-107 [facility] Work Phone: Eosinophils/100 WBC (Bld) 0.5 % 0-[address] [facility] Work Phone: Glucose [Mass/Vol] 85 mg/dL 74-106 [facility] Work Phone: Neutrophils (Bld) [#/Vol] 8.1 10*3/uL 2.0-7.[address] [facility] Work Phone: Neutrophils/100 WBC (Bld) 74.1 % 47-[address] [facility] Work Phone: Potassium [Moles/Vol] 4.2 mmol/L 3.5-5.1 [facility] Work Phone: Protein [Mass/Vol] 7.0 g/dL 6.4-8.2 [facility] Work Phone: Sodium [Moles/Vol] 138 mmol/L 136-145 [facility] Work Phone: WBC (Bld) [#/Vol] 10.9 10*3/uL 4.4-11.[address] [facility] Work Phone: Blood erythrocytes count (nu mber/volume)on 03-26-2022 RBC (Bld) [#/Vol] 4.75 10*6/uL 4.6-6.[address] [facility] Work Phone: Blood hemoglobin measurement (mass/volume)on 03-26-2022 Hemoglobin (Bld) [Mass/Vol] 14.4 g/dL 13.0-16.[address] [facility] Work Phone: Blood lymphocytes/100 leukoc yteson 03-26-2022 Lymphocytes/100 WBC (Bld) 14.7 % 19-[address] [facility] Work Phone: [phone] Blood monocytes/100 leukocyt eson 03-26-2022 Monocytes/100 WBC (Bld) 10.0 % 0-10 [facility] Work Phone: Blood platelet mean volumeon 03-26-2022 Platelet mean volume (Bld) [Entitic vol] 10.8 fL 6.2-12.[address] [facility] Work Phone: Determination of erythrocyte mean corpuscular volume (MCV)on 03-26-2022 MCV (RBC) [Entitic vol] 90.3 fL 80-94 [facility] Work Phone: Hematocrit Auto (Bld) [Volum e fraction]on 03-26-2022 Hematocrit (Bld) [Volume fraction] 42.9 % 40-[address] [facility] Work Phone: Laboratory - Chemistry and C hemistry - challengeon 03-26-2022 ALP [Catalytic activity/Vol] 89 U/L 45-[address] [facility] Work Phone: ALT [Catalytic activity/Vol] 26 U/L 16-[address] [facility] Work Phone: [phone] CO2 [Moles/Vol] 28.0 mmol/L 21.0-32.[address] [facility] Work Phone: Globulin (S) [Mass/Vol] 3.4 g/dL 2.2-4.2 [facility] Work Phone: Urea nitrogen/Creatinine [Mass ratio] 11.6 mg/mg 10-[address] [facility] Work Phone: Laboratory - Hematology and Cell countson 03-26-2022 Erythrocyte distribution width (RBC) [Entitic vol] 46.7 fL 35.1-43.[address] [facility] Work Phone: [phone] Erythrocyte distribution width (RBC) [Ratio] 14.1 % 11.6-14.[address] [facility] Work Phone: [phone] Immature granulocytes/100 WBC (Bld) 0.400 % 0.0-0.[address] [facility] Work Phone: [phone] Comment on above: IG% - Immature Granu locytes (promyelocytes, myelocytes and metamyelocytes) > 1% indicates that a LEFT SHIFT is Present. MCH (RBC) [Entitic mass] 30.3 pg 27.0-32.[address] [facility] Work Phone: [phone] Nucleated RBC/100 WBC (Bld) [Ratio] 0 % 0-[address] [facility] Work Phone: [phone] MCHC Auto (RBC) [Mass/Vol]on 03-26-2022 MCHC (RBC) [Mass/Vol] 33.6 g/dL 32-36 [facility] Work Phone: No Panel Informationon 03-26 Estimated GFR (MDRD) Amer 101 mL/min >[address] [facility] Work Phone: Comment on above: GFR Calc Estimated GFR (MDRD) Non-Af Amer 83 mL/min >[address] [facility] Work Phone: Comment on above: Non- GFR Calc Thyroid Stimulating Hormone (TSH) 1.48 uIU/mL 0.358-3.[address] [facility] Work Phone: Vitamin D 25-Hydroxy 34.6 ng/mL [facility] Work Phone: [phone] Comment on above: Vitamin D 25(OH) Sta tus Range Deficiency <20 ng/mL (50nmol/L) Insufficiency 20 - 30 ng/mL (50 - 75 nmol/L) Sufficiency 30 - 100 ng/mL (75 - 250 nmol/L) Toxicity >100 ng/mL (>250 nmol/L) Platelets bldon 03-26-2022 Platelets (Bld) [#/Vol] 232 10*3/uL 150-[address] [facility] Work Phone: Serum or plasma albumin erika urement (mass/volume)on 03-26-2022 Albumin [Mass/Vol] 3.6 g/dL 3.2-5.0 [facility] Work Phone: [phone] Serum or plasma albumin/glob ulin mass ratioon 03-26-2022 Albumin/Globulin [Mass ratio] 1.1 {ratio} 0.9-2.[address] [facility] Work Phone: [phone] Serum or plasma calcium erika urement (mass/volume)on 03-26-2022 Calcium [Mass/Vol] 9.0 mg/dL 8.5-10.1 [facility] Work Phone: [phone] Serum or plasma creatinine m easurement (mass/volume)on 03-26-2022 Creatinine [Mass/Vol] 0.95 mg/dL 0.70-1.30 [facility] Work Phone: Comment on above: The validity of the calculated GFR & GFRAA in patients over 70 years has not been determined. Clinical correlation is essential. Serum or plasma urea nitroge n measurement (mass/volume)on 03-26-2022 Urea nitrogen [Mass/Vol] 11 mg/dL 7-[address] [facility] Work Phone: Thin prep Papanicolaou smear with manual screeningon 03-26-2022 Thin prep Papanicolaou smear with manual screening 12 U/L 15-[address] [facility] Work Phone: [phone] Thin prep Papanicolaou smear with manual screening 3 5-[address] [facility] Work Phone: [phone] Absolute lymphocyte counton 09-24-2021 Lymphocytes Auto (Unsp spec) [#/Vol] 1.78 10*3/uL 0.83-4.[address] [facility] Work Phone: [phone] Basophil percentageon 2021 Basophils/100 WBC (Bld) 0.5 % 0-1 [facility] Work Phone: [phone] Bilirubin [Mass/Vol] 0.60 mg/dL 0.20-1.00 [facility] Work Phone: Comment on above: For patients on eltr ombopag therapy, use of Dimension [place] TBIL is not recommended. Chloride [Moles/Vol] 107 mmol/L 98-107 [facility] Work Phone: Eosinophils/100 WBC (Bld) 1.9 % 0-[address] [facility] Work Phone: Glucose [Mass/Vol] 75 mg/dL 74-106 [facility] Work Phone: Neutrophils (Bld) [#/Vol] 6.6 10*3/uL 2.0-7.[address] [facility] Work Phone: Neutrophils/100 WBC (Bld) 69.8 % 47-[address] [facility] Work Phone: Potassium [Moles/Vol] 3.9 mmol/L 3.5-5.1 [facility] Work Phone: Protein [Mass/Vol] 6.7 g/dL 6.4-8.2 [facility] Work Phone: Sodium [Moles/Vol] 140 mmol/L 136-145 [facility] Work Phone: WBC (Bld) [#/Vol] 9.4 10*3/uL 4.4-11.0 [facility] Work Phone: Blood erythrocytes count (nu mber/volume)on 09-24-2021 RBC (Bld) [#/Vol] 4.65 10*6/uL 4.6-6.[address] [facility] Work Phone: Blood hemoglobin measurement (mass/volume)on 09-24-2021 Hemoglobin (Bld) [Mass/Vol] 13.9 g/dL 13.0-16.[address] [facility] Work Phone: Blood lymphocytes/100 leukoc yteson 09-24-2021 Lymphocytes/100 WBC (Bld) 19.0 % 19-[address] [facility] Work Phone: Blood monocytes/100 leukocyt eson 09-24-2021 Monocytes/100 WBC (Bld) 8.5 % 0-10 [facility] Work Phone: [phone] Blood platelet mean volumeon 09-24-2021 Platelet mean volume (Bld) [Entitic vol] 10.2 fL 6.2-12.[address] [facility] Work Phone: [phone] Determination of erythrocyte mean corpuscular volume (MCV)on 09-24-2021 MCV (RBC) [Entitic vol] 90.8 fL 80-94 [facility] Work Phone: [phone] Hematocrit Auto (Bld) [Volum e fraction]on 09-24-2021 Hematocrit (Bld) [Volume fraction] 42.2 % 40-[address] [facility] Work Phone: [phone] Laboratory - Chemistry and C hemistry - challengeon 09-24-2021 ALP [Catalytic activity/Vol] 63 U/L 45-[address] [facility] Work Phone: [phone] ALT [Catalytic activity/Vol] 25 U/L 16-[address] [facility] Work Phone: [phone] CO2 [Moles/Vol] 28.0 mmol/L 21.0-32.[address] [facility] Work Phone: [phone] Globulin (S) [Mass/Vol] 2.9 g/dL 2.2-4.2 [facility] Work Phone: [phone] Urea nitrogen/Creatinine [Mass ratio] 9.2 mg/mg 10-[address] [facility] Work Phone: [phone] Laboratory - Hematology and Cell countson 09-24-2021 Erythrocyte distribution width (RBC) [Entitic vol] 46.7 fL 35.1-43.[address] [facility] Work Phone: [phone] Erythrocyte distribution width (RBC) [Ratio] 14.0 % 11.6-14.[address] [facility] Work Phone: [phone] Immature granulocytes/100 WBC (Bld) 0.300 % 0.0-0.[address] [facility] Work Phone: Comment on above: IG% - Immature Granu locytes (promyelocytes, myelocytes and metamyelocytes) > 1% indicates that a LEFT SHIFT is Present. MCH (RBC) [Entitic mass] 29.9 pg 27.0-32.[address] [facility] Work Phone: [phone] Nucleated RBC/100 WBC (Bld) [Ratio] 0 % 0-[address] [facility] Work Phone: [phone] MCHC Auto (RBC) [Mass/Vol]on 09-24-2021 MCHC (RBC) [Mass/Vol] 32.9 g/dL 32-36 [facility] Work Phone: [phone] Panel Informationon 09-24 Estimated GFR (MDRD) Amer 98 mL/min >[address] [facility] Work Phone: [phone] Comment on above: GFR Calc Estimated GFR (MDRD) Non-Af Amer 81 mL/min >[address] [facility] Work Phone: [phone] Comment on above: Non- GFR Calc Prostate Specific Antigen Screen 7.31 ng/mL 0.00-4.[address] [facility] Work Phone: Comment on above: This test was perfor med using the TPSA assay method for [employer] chemistry system. Values obtained with differentassay methods cannot be used interchangably.When changing PSA assays in the course of monitoring apatient, additional sequential testing should be carriedout to confirm baseline values. Thyroid Stimulating Hormone (TSH) 2.41 uIU/mL 0.358-3.[address] [facility] Work Phone: [phone] Vitamin D 25-Hydroxy 29.2 ng/mL [facility] Work Phone: [phone] Comment on above: Vitamin D 25(OH) Sta tus Range Deficiency <20 ng/mL (50nmol/L) Insufficiency 20 - 30 ng/mL (50 - 75 nmol/L) Sufficiency 30 - 100 ng/mL (75 - 250 nmol/L) Toxicity >100 ng/mL (>250 nmol/L) Platelets bldon 09-24-2021 Platelets (Bld) [#/Vol] 278 10*3/uL 150-[address] [facility] Work Phone: Serum or plasma albumin erika urement (mass/volume)on 09-24-2021 Albumin [Mass/Vol] 3.8 g/dL 3.2-5.0 [facility] Work Phone: Serum or plasma albumin/glob ulin mass ratioon 09-24-2021 Albumin/Globulin [Mass ratio] 1.3 {ratio} 0.9-2.[address] [facility] Work Phone: Serum or plasma calcium erika urement (mass/volume)on 09-24-2021 Calcium [Mass/Vol] 8.7 mg/dL 8.5-10.1 [facility] Work Phone: Serum or plasma creatinine m easurement (mass/volume)on 09-24-2021 Creatinine [Mass/Vol] 0.98 mg/dL 0.70-1.30 [facility] Work Phone: Comment on above: The validity of the calculated GFR & GFRAA in patients over 70 years has not been determined. Clinical correlation is essential. Serum or plasma urea nitroge n measurement (mass/volume)on 09-24-2021 Urea nitrogen [Mass/Vol] 9 mg/dL 7-[address] [facility] Work Phone: Thin prep Papanicolaou smear with manual screeningon 09-24-2021 Thin prep Papanicolaou smear with manual screening 14 U/L 15-[address] [facility] Work Phone: Thin prep Papanicolaou smear with manual screening 5 5-[address] [facility] Work Phone: Vital Signs Date Time Vital Sign Value Performing Clinician Faci lity 12-12-2022 07:19-0400 SaO2% (BldA) [Mass fraction] 95 % [facility] 12-12-2022 02:50-0400 Body temperature 98.1 [degF] [facility] 12-12-2022 02:50-0400 Diastolic blood pressure 73 mm[Hg] [facility] 12-12-2022 02:50-0400 Heart rate 73 /min [facility] 12-12-2022 02:50-0400 Respiratory rate 16 /min [facility] 12-12-2022 02:50-0400 Systolic blood pressure 109 mm[Hg] [facility] 12-11-2022 16:39-0400 Body height 177.8 cm [facility] 12-11-2022 16:39-0400 Body mass index (BMI) [Ratio] 29.4 kg/m2 [facility] 12-11-2022 16:39-0400 Body weight 93 kg [facility] 12-11-2022 15:42-0400 Inhaled oxygen flow rate 6 L/min [facility] Encounters Encounter Date Encounter Type Care Provider Facility Start: 10-18-2024 End: 10-18-[address] Luiz Celeste MD Work Phone: [facility] Work Phone: Start: 10-18-2024 End: 10-18-[address] Luiz Celeste MD -Laboratory Work Phone: Start: 10-18-2024 End: 10-18-2024 ambulatory [facility] Facility:[facility] Start: 10-12-2024 End: 10-12-[address] Luiz Celeste MD -Laboratory, Specimen Work Phone: Start: 10-12-2024 End: 10-12-2024 ambulatory [facility] Facility:[facility] Start: 07-02-2024 End: 07-02-[address] Luiz Celeste MD -Laboratory, Phy Office 3rd Flr Start: 07-02-2024 End: 07-02-2024 ambulatory Luiz [facility] Facility:[facility] Start: 04-09-2024 End: 04-09-2024 ambulatory [facility] Facility:[facility] Start: 03-29-2024 End: 03-29-2024 ambulatory Luiz [facility] Facility:[facility] Start: 03-08-2024 End: 03-08-2024 ambulatory [facility] Facility:[facility] Start: 01-27-2024 End: 01-27-2024 ambulatory [facility] Facility:[facility] Start: 01-16-2024 End: 01-16-2024 ambulatory [facility] Facility:[facility] Start: 10-17-2023 End: 10-17-[address] [facility] Work Phone: Start: 10-17-2023 End: 10-17-2023 Patient encounter procedure [facility]-Laboratory Work Phone: Start: 04-04-2023 End: 04-04-[address] Luiz Celeste Work Phone: [facility] Work Phone: Start: 04-04-2023 End: 04-04-[address] Luiz Celeste Work Phone: [facility]-Laboratory Work Phone: Start: 12-11-2022 End: 12-12-2022 Evaluation and management of inpatient [facility]-Medical Surgical 3 Work Phone: Start: 12-11-2022 End: 12-11-2022 Non-patient / Non-visit Dr. Luiz Celeste Work Phone: [facility] Work Phone: Start: 11-08-2022 End: 11-08-[address] [facility] Work Phone: Start: 11-08-2022 End: 11-08-2022 Patient encounter procedure [facility]-MRI - [facility] Work Phone: Start: 10-01-2022 End: 10-01-[address] [facility] Work Phone: Start: 10-01-2022 End: 10-01-2022 Patient encounter procedure [facility]-Laboratory, Phy Office 3rd Flr Start: 03-26-2022 End: 03-26-[address] [facility] Work Phone: Start: 03-26-2022 End: 03-26-2022 Patient encounter procedure [facility]-Laboratory, Phy Office 3rd Flr Start: 09-24-2021 End: 09-24-2021 Patient encounter procedure [facility]-Laboratory, Phy Office 3rd Flr Procedures Date Procedure Procedure Detail Performing Clinician Start: 10-18-2024 Vitamin D, 25-hydrox y measurement Dr. Luiz Celeste MD Work Phone: Comment on above: Vitamin D StatusDefi ciency: <20 ng/mL (50nmol/L)Insufficiency: 20-30 ng/mL (50-75 nmol/L)Sufficiency: 30-100 ng/mL (75-250 nmol/L)Toxicity: >100 ng/mL (>250 nmol/L) Start: 10-12-2024 SARS-CoV-2, Influenz a & RSV (PCR) Dr. Luiz Celeste MD Work Phone: Start: 07-02-2024 SARS-CoV-2, Influenz a & RSV (PCR) Dr. Luiz Celeste MD Work Phone: Start: 11-08-2022 MRI of pelvis with contrast Plan of Treatment Date Care Activity Detail Author Start: 12-12-2022 Patient discharge [facility] Start: 12-12-2022 Removal of urinary catheter [facility] Start: 12-11-2022 Following clinical pathway protocol [facility] Start: 12-11-2022 Application of intermittent pneumatic compression device [facility] Start: 12-11-2022 Admission procedure [facility] Start: 12-11-2022 Deep breathing and coughing exercises [facility] Start: 12-11-2022 Incentive spirometry [facility] Start: 12-11-2022 Irrigation of urinary bladder [facility] Start: 12-11-2022 Measuring intake and output [facility] Start: 12-11-2022 Patient education [facility] Start: 12-11-2022 Provision of activity privileges [facility] Start: 12-11-2022 Taking patient vital signs [facility] Start: 12-11-2022 Vital signs measurements [facility] Start: 12-11-[address] [facility] Start: 12-11-2022 Anesthesia transurethral resection of prostate ANESTH REMOVAL OF PROSTATE [facility] Start: 12-11-2022 Cystourethroscopy w/dest &/rmvl med bladder shweta CYSTOSCOPY AND TREATMENT [facility] Start: 12-11-2022 Trurl electrosurg rescj prostate bleed complete PROSTATECTOMY (TURP) [facility] Patient Education TURP Home Recovery [facility] Work Phone: Patient referral [facility] Work Phone: Payers Date Payer Category Payer Medicare [id number] 2024 Self-pay [id number] Unknown [id number] 2.16.8 [id number] Unknown [id number] 2.16.8 [id number] Unknown [id number] 2.16.8 [id number] Unknown [id number] 2.16.8 [id number] Unknown [id number] 2.16.8 [id number] Unknown [id number] 2.16.8 [id number] Unknown [id number] 2.16.8 [id number] Unknown [id number] 2.16.8 [id number] Unknown [id number] 2.16.8 [id number] Social History Date Type Detail Facility [facility] if ever smoked [facility] Work Phone: Start: 1950 Sex Assigned At Male [facility] Start: 12-11-2022 [facility] if ever smoked [facility] Start: 01-12-2024 Tobacco smoking stat us [facility] Smokes tobacco daily (finding) [facility] Goals Date Patient Goal Desired Activity /State Functional Status Date Assessment Result Facility 12-12-2022 Functional status [facility] Work Phone: Mental Status Date Assessment Result Facility 12-12-2022 Cognitive function Appropriate;Svetlana resendiz [facility] Work Phone: 12-11-2022 Cognitive function Voice/Name [facility] Work Phone: Clinical Note 01-16-2024 Note Date & Type Note Facility 01-16-2024 Note [facility] Medical Records Department [address] [place] [address] History Physical Exam 01/16/24922 MR#: [id number] Acct: [id number] Name: SAVANNAH CROOKS Rep #: [id number] : 1950 73 From: Los [place] MD PCP: Dr. Luiz Celeste MD Status:[facility] Location: [place] [address] HPI - General General Date of Service: 01/16/24 Chief Complaint: Bladder tumor HPI Narrative SAVANNAH CROOKS, is a 73 M who presents cystoscopy biopsy and cauterization of small bladder tumors PFSH Medical History Cancer Psoriasis Chewing tobacco dependence Loss of hearing Alcohol use Prostate disease Bladder disease High cholesterol Constipation Smoker Home Medications ???Medication ???Instructions ???Recorded ???Last Taken ???Type pravastatin 40 mg tablet 40 mg PO QHS 12/04/22 Unknown History psyllium 1 packet PO DAILY 12/04/22 Unknown History finasteride 5 mg tablet 5 mg PO DAILY 01/12/24 Unknown History ciprofloxacin HCl 500 mg tablet 500 mg PO BID #6 tabs 01/16/24 Unknown Rx (Cipro) ibuprofen 600 mg tablet 600 mg PO Q6H PRN fever or pain 01/16/24 Unknown Rx #20 tabs Allergy/AdvReac Type Severity Reaction Status Date / Time Environmental Allergies: Allergy Rash Verified 01/12/24 13:14 Uncoded Surgical History History of transurethral resection of bladder tumor (TURBT) Hx of right cataract extraction Hx of left cataract extraction Hx of colonoscopy Social History Smoking Status: Current every day smoker tobacco type: smokeless tobacco Vital Signs Vital Signs Vital Signs: 01/16/24 07:56 01/16/24 07:56 Temperature 97.7 F L Temperature Source Temporal Pulse Rate 63 Respiratory Rate 16 Respiratory Pattern Normal Blood Pressure 124/75 H Blood Pressure Mean 91 Blood Pressure Source Monitor Blood Pressure Position Semi-Fowlers Blood Pressure Location Left Arm Pulse Ox 98 Oxygen Delivery Method Room Air Weight Weight: 93.7 kg Body Mass Index (BMI) 29.6 01/16/24 0923 Cosigner Signature (if applicable): CC: Dr. Los Santos MD; Dr. Luiz Celeste MD Signed [facility] Evaluation note Note Date & Type Note Facility Evaluation note No assessment information availa ble [facility] Work Phone: Hospital Discharge instructions Note Date & Type Note Facility Hospital Discharge instructions Additional Instructions Implant Used?: No [facility] Work Phone: Reason for referral (narrative) Note Date & Type Note Facility Reason for referral (narrative) No reason for referral information available [facility] Work Phone: Chief Complaint and Reason for Visit Chief Complaint ELEVATED PSA TURBT WITH PETAR C Chief Complaint PREOP TURBT WITH PETAR C Advance Directives No Advanced Directives Records Found Advance Directive Response Recorded Date/ Time Living Will No December 11, 2022 4:39pm Power of Beating Machine Operator No December 11 4:39pm Summary Purpose Family History No Family History Records Found Additional Source Comments Goals (unrecognized section and content) Goals may be documented in a n alternate sectionGoals may be documented in an alternate sectionGoals may be documented in an alternate sectionGoals may be documented in an alternate section Care Teams (unrecognized sec tion and content) Team Status: Active Member Role Status Dates Dr. Luiz Celeste MD Family Provider Active Dr. Luiz Celeste MD Primary Care Provider Active Team Status: Inactive Member Role Status Dates Dr. Luiz Celeste MD Primary Care Provider, Attending Provider Active Team Status: Inactive Member Role Status Dates Dr. Luiz Celeste MD Primary Care Provider Active Dr. Los Santos MD Attending Provider, Referr ing Provider Active Team Status: Inactive Member Role Status Dates Dr. Luiz Celeste MD Primary Care Provider Active Dr. Los Santos MD Admit Provid er, Attending Provider, Referring Provider Active Team Status: Active Member Role Status Dates Dr. Luiz Celeste MD Primary Care Provider Active Dr. Yosef Delong MD Attending Provider Active Dr. Jaron Randle MD Referring Provider Active Team Status: Inactive Member Role Status Dates Dr. Luiz Celeste MD Primary Care Provi kev, Attending Provider, Referring Provider Active Team Status: Inactive Member Role Status Dates Dr. Luiz Celeste MD Primary Care Provider Active Start: July 02, 2024 End: July 02, 2024 Dr. Luiz Celeste MD Attending Provider Active Start: July 02, 2024 End: July 02, 2024 Team Status: Inactive Member Role Status Dates Dr. Luiz Celeste MD Primary Care Provider Active Start: October 12, 2024 End: October 12, 2024 Dr. Luiz Celeste MD Attending Provider Active Start: October 12, 2024 End: October 12, 2024 Dr. Luiz Celeste MD Referring Provider Active Start: October 12, 2024 End: October 12, 2024 Team Status: Inactive Member Role Status Dates Dr. Luiz Celeste MD Primary Care Provider Active Start: October 18, 2024 End: October 18, 2024 Dr. Luiz Celeste MD Attending Provider Active Start: October 18, 2024 End: October 18, 2024 Dr. Luiz Celeste MD Referring Provider Active Start: October 18, 2024 End: October 18, 2024 (unrecognized sect ion and content) No Status Records Found INFORMATION SOURCE (unrecogn ized section and content) DATE CREATED AUTHOR 10/21/2024 [facility] FOR RECORDS PERTAINING TO PATIENTS WHO ARE OR HAVE BEEN ENROLLED IN A CHEMICAL DEPENDENCY/SUBSTANCEABUSE PROGRAM, SOME INFORMATION MAY BE OMITTED. This clinical summary was aggregated from multiple sources. Caution should be exercised in using it in the provision of clinical care. This summary normalizes information from multiple sources, and as a consequence, information in this document may materially change the coding, format and clinical context of patient data. In addition, data may be omitted in some cases. CLINICAL DECISIONS SHOULD BE BASED ON THE PRIMARY CLINICAL RECORDS. [facility] [employer] provides no warranty or guarantee of the accuracy or completeness of information in this document.
[2025-05-06 11:53] LABS: Cholesterol 215 mg/dL (<=200); Low Density Lipoprotein Calc. 151 mg/dL; Triglycerides 80 mg/dL; Very Low Density Lipoprotein 16 mg/dL (5-40); cholesterol:hdl ratio screen 4.32
[2025-05-06 11:54] LABS: AST(SGOT) 21 U/L (<=37); Alanine Aminotransfer ALT/SGPT 16 U/L (<=46); Albumin, Serum 4.2 g/dL (3.4-4.8); Alkaline Phosphatase 65 U/L (40-129); Anion Gap 9 (5-15); BUN 11 mg/dL (4-19); BUN/Creat Ratio 11.5 RATIO (10-20); Calcium,Total 9.3 mg/dL (7.6-11.0); Carbon Dioxide 26.4 mmol/L (21.0-32.0); Chloride 106 mmol/L (98-108); Globulin 2.1 g/dL (2.2-4.2); Glucose 100 mg/dL (70-99); Potassium 4.3 mmol/L (3.3-5.1)
[2025-05-06 18:50] LABS: Xtra Tube Kwok EXTRA TUBE
== END | disposition home or self-care (01) ==
LOC: POLAB3 10:49
PROVIDERS: PCP Family Medicine Geriatric Medicine; Visit Provider Family Medicine Geriatric Medicine
DX: E78.5 Hyperlipidemia, unspecified (principal); R53.83 Other fatigue
CPT/HCPCS: 36415; 80053; 80061; 84443; 85025